=== PATIENT | male | born 1945 | race Caucasian/White ===

== ENCOUNTER 2024-03-08 09:52 | Emergency (ER) | payer MEDICARE, BC, SELFPAY ==
[2024-03-08 10:02] VITALS: BMI 26.6
[2024-03-08 10:05] VITALS: BP 170/94
--- NOTE | 2024-03-08 10:22 | ED.MUSCINJ ---
HPI-Injury
General
Chief Complaint: Fall
Source: patient
Exam Limitations: none
Time Seen by Provider: 03/08/24 10:05
Travel History
Have you had any contact with someone who has COVID-19?: No
Do you have any symptoms of coronavirus? Fever > 100 degrees, chills, cough, shortness of breath, sore throat, loss of taste or smell, muscle aches, or headache?: No
History of Present Illness-Injury
Initial Injury comments:
78-year-old male presents as a rapid response called from the parking lot. He was dropping his daughter off for colonoscopy and he parked in his car was rushing to get back in before they took her back but tripped. He fell forward hitting his face
on the sidewalk but also complains of left wrist and elbow pain. No anticoagulants. No loss of conscious. No neck or back pain. His nose bled for several minutes then stop.
Phy Exam
Physical Exam
Physical Exam:
General: Well-appearing male no acute respiratory distress
HEENT: Normocephalic contusion noted to left maxillary area with dried blood around bilateral nasal orifices. Nasal cavities are patent no obvious evidence of septal hematoma pupils are equal round measuring 2 mm nonreactive to light TMs normal
Heart: Regular rate and rhythm no murmurs
Lungs: Clear no wheezing or rales
Musculoskeletal exam: Spine is nontender. Left wrist is slightly swollen and tender over the radiocarpal joint. Left elbow is also slightly tender over the radial aspect of the elbow.
Neurologic: Alert and oriented no facial asymmetry or slurred speech
Injury Course
Orders/Labs/Results
Orders:
Orders
03/08/24 10:19
CT Facial Bones W/o Iv Contras Urgent
Comment:
Reason For Exam: fall, left facial pain
CT Head W/o Iv Contrast Urgent
Comment:
Reason For Exam: fall
CR Elbow - Left Min 3 Views Urgent
Comment:
Reason For Exam: fall
CR Wrist - Left Min 3 Views Urgent
Comment:
Reason For Exam: fall
03/08/24 12:05
Sling Left-Treatment ONCE
MDM/Problems Addressed
Differential Diagnosis Includes:
Mechanical fall with facial injury and left wrist and elbow pain. CT head and face pending to evaluate for fracture or intracranial hemorrhage. X-ray left wrist pending to evaluate for patient.
*Critical Care Note
Total Time (30-74mins, 75-104mins- exclusive of procedures): Not Applicable
Update Note
Update Note:
X-rays have been personally visualized. There is a nondisplaced radial neck fracture of the left elbow. Left wrist is negative. CT of the head and face demonstrates nondisplaced nasal bone fracture. Recommended ibuprofen or Tylenol. Sling was
applied to his left arm. Stable for discharge with orthopedics and ENT follow-up
ED Attending Note
-
Portions of this chart may have been created with voice recognition software.� Occasional wrong word or��sound alike� substitutions may have occurred due to the inherent limitations of voice recognition software.
Discharge Plan
Departure
Patient Disposition: Home (Routine Discharge)
Date of Disposition: 03/08/24
Time of Disposition: 12:08
Patient with high blood pressure during this ER visit?: No
Discharge Problem:
Fracture of radial neck, Fracture of nasal bone
Instructions: Nose fracture, Preventing falls in adults
Referrals:
Mele Morris MD [Active] -
Mary Ellen Castillo MD [Active] -
Charlie Madrid DO [Family Provider] -
Activity Restrictions/Additional Instructions:
Use Tylenol or ibuprofen for pain. Use sling for support for the left arm. Please follow-up with orthopedics and ear nose and throat.
Interventions
Interventions:
*Risk Screen - Suicide Last Done: 03/08/24 10:05
*General Assessment Last Done: 03/08/24 09:59
*Neglect/Abuse Screening Last Done: 03/08/24 10:05
ED- Fall Risk Assessment Last Done: 03/08/24 10:06
*ED COVID-19 Vaccine History Last Done: 03/08/24 09:59
ED-Musculoskeletal Assessment Last Done: 03/08/24 10:03
ED- Neurological Assessment Last Done: 03/08/24 10:03
ED-Skin Assessment Last Done: 03/08/24 10:05
Discharge Date and Time
Print Language: CANADIAN
== END 2024-03-08 12:51 | disposition home or self-care (01) ==
LOC: EMR 09:52
PROVIDERS: EMERGENCY PHYSICIAN Emergency Medicine; FAMILY PHYSICIAN Internal Medicine
DX: S02.2XXA Fracture of nasal bones, initial encounter for closed fracture (principal); S52.135A Nondisplaced fracture of neck of left radius, initial encounter for closed fracture; W19.XXXA Unspecified fall, initial encounter
CPT/HCPCS: 99284; 70450; 70486; 73080; 73110

== ENCOUNTER → 2024-09-04 11:07 | Outpatient (REF) | payer MEDICARE, BC, SELFPAY | LOC: RAD 11:07 | PROVIDERS: ATTENDING PHYSICIAN Nurse Practitioner Primary Care; REFERRING PHYSICIAN Internal Medicine Critical Care Medicine | DX: R06.2 Wheezing (principal); R05.2 Subacute cough; R06.09 Other forms of dyspnea; Z87.891 Personal history of nicotine dependence | CPT/HCPCS: 71260; Q9967 ==

== ENCOUNTER → 2024-09-09 10:58 | Outpatient (REF) | payer MEDICARE, BC, SELFPAY | LOC: RCS 10:58 | PROVIDERS: ATTENDING PHYSICIAN Internal Medicine Critical Care Medicine; FAMILY PHYSICIAN Internal Medicine | DX: J44.9 Chronic obstructive pulmonary disease, unspecified (principal) | CPT/HCPCS: 93005 ==

== ENCOUNTER → 2025-07-22 10:58 | Outpatient (REF) | payer MEDICARE, BC, SELFPAY | LOC: RAD 10:58 | PROVIDERS: ATTENDING PHYSICIAN Nurse Practitioner Family | DX: R05.1 Acute cough (principal) | CPT/HCPCS: 71046 ==

== ENCOUNTER → 2025-07-25 10:10 | Outpatient (REF) | payer MEDICARE, BC, SELFPAY | LOC: HWRCS 10:10 | PROVIDERS: ATTENDING PHYSICIAN Nurse Practitioner Family; FAMILY PHYSICIAN Internal Medicine | DX: R79.89 Other specified abnormal findings of blood chemistry (principal); R06.02 Shortness of breath | CPT/HCPCS: 93005; 93306 ==

== ENCOUNTER → 2025-08-18 16:05 | Outpatient (REF) | payer MEDICARE, BC, SELFPAY | LOC: RAD 16:05 | PROVIDERS: ATTENDING PHYSICIAN Nurse Practitioner Adult Health; FAMILY PHYSICIAN Internal Medicine | DX: J44.1 Chronic obstructive pulmonary disease with (acute) exacerbation (principal) | CPT/HCPCS: 71046 ==

== ENCOUNTER 2025-10-22 13:35 | Inpatient (IN) | payer MEDICARE, BC, SELFPAY ==
[2025-10-22] VITALS (19 sets, daily range): BP systolic 118–197; BP diastolic 65–105; PULSE 2–109; BMI 24.6; BMI 25.4
--- NOTE | 2025-10-22 08:49 | ED.GENMED ---
History of Present Illness
<Chika Swenson MD, Resident - Last Filed: 10/22/25 10:49>
General
Chief Complaint: Breathing Problem
Source: patient and family
Exam Limitations: none
Time Seen by Provider: 10/22/25 08:26
Nursing documentation reviewed up to this point in time: agreed with
History of Present Illness
History of Present Illness:
80yo M with a hx of COPD, gastric & prostate ca (remission), GERD, JAROCHO of unknown etiology who presents with subacute dyspnea.
Pt was in his usual state of health until ~2 days ago when he began having worsening dyspnea on exertion and productive cough. Yesterday, dyspnea got progressively worse and he had a hard time sleeping through the night; came to the ED. Was using
rescue albuterol inhaler at least every 4 hrs. Did not take his trelegy yet this am (typically takes every am). Denies any f/c, denies any known sick contacts. However, notes that they spent the last few days at an assisted living/SNF facility which
often has URIs going around. Endorses orthopnea and JAROCHO, although this is chronic. He takes lasix 20mg daily for JAROCHO (no formal dx of CHF).
Last had an exacerbation a few weeks ago, thought to be triggered by his GERD. Follows w Dr. Fox (leather heel breaster) who rx azithromycin & prednisone at that time. Had an rx for home prednisone in case of exacerbation, which he had not yet picked
up. He returned to baseline breathing, was able to ambulate/exercise without issue (no O2 use at home) for the last couple of weeks.
Past History
<Chika Swenson MD, Resident - Last Filed: 10/22/25 10:49>
Past History
ED Past Medical History: Asthma, Cancer (prostate, gastric), COPD, GERD and Other (JAROCHO chronic )
Social History
Personal:
Review of Systems
<Chika Swenson MD, Resident - Last Filed: 10/22/25 10:49>
Review of Systems
All Other Systems: ROS reviewed and negative except as documented in HPI and ROS
Constitutional: Reports no symptoms
EENT: Reports no symptoms
Respiratory: Reports cough and trouble breathing
Cardiac: Reports no symptoms
ABD/GI: Reports no symptoms
: Reports no symptoms
Musculoskeletal: Reports edema
Skin: Reports no symptoms
Neurological: Reports no symptoms
Psychiatric: Reports no symptoms
Phy Exam
<Chika Swenson MD, Resident - Last Filed: 10/22/25 10:49>
General Physical Exam
General Presentation: moderate distress
General age: appears stated age
General Skin: warm and dry
General Habitus: normal
General Mental: alert
Cardiovascular Exam
Cardiovascular Exam: regular rate/rhythm and other (1+ pitting edema bilateral LEs to mid-[place])
Heart Sounds: normal
Pulmonary Exam
Pulmonary Exam: accessory muscle use, generalized wheezing and other (retractions, out of breath with finishing sentences )
Gastrointestinal Exam
Gastrointestinal Exam: soft and non distended
Neurological Exam
Neurological Exam: alert
Musculoskeletal Exam
Musculoskeletal Exam: edema (1+ pitting bilat LE to mid [place])
Skin Exam
Skin Exam: normal color and warm/dry
Psychiatric Exam
Psychiatric Exam: normal mood/affect
Scores
<Chika Swenson MD, Resident - Last Filed: 10/22/25 10:49>
Heart Failure Risk
Heart Failure Risk Score: Not Applicable
Sepsis
<Chika Swenson MD, Resident - Last Filed: 10/22/25 10:49>
Sepsis Screening
Sepsis Assessment: Sepsis Ruled Out
Sepsis Screen
Sepsis Screen: Sepsis Ruled Out
Date: 10/22/25
Time: 10:49
Course
<Chika Swenson MD, Resident - Last Filed: 10/22/25 10:49>
Orders/Labs/Results
Orders:
Orders
10/22/25 08:34
Ipratropium/Albuterol Sulfate [Duoneb] 3 ml INH R NOW STA
MethylPREDNISolone PF [Solu-Medrol Pf] 125 mg IV NOW STA
Oxygen Mask - Non-rebreather [RESP] Stat
10/22/25 08:59
Bipap [RESP] Urgent
Patient to use own unit?: No
Inspiratory Pressure (cm H2O): 12
Expiratory Pressure (cm H2O): 5
10/22/25 09:04
COVID-19 Antigen Urgent
Source: Nasal Swab
Complete Blood Count/With Diff Urgent
Comprehensive Metabolic Panel Urgent
NT-proBNP Urgent
Venous Blood Gas Urgent
%Oxygen/Room Air: 21
Influenza A+B Rapid Molecular Urgent
SY Source: Nasal Swab
Specimen Description:
10/22/25 09:15
CR Chest Portable - 1 View Urgent
Comment:
Reason For Exam: copd
Reason Study Needs to be Portable: Unable to Transport
10/22/25 11:00
Azithromycin 500 mg/250 ml [Zithromax Infusion] 500 mg in 250 ml IV Q24H
10/22/25 12:00
CefTRIAXone [Rocephin] 1,000 mg IV Q24H
Abnormal Lab Results
10/22/25
09:04
MCHC 32.2 L g/dL
(33.0-37.0)
Absolute Neuts (auto) 8.2 H 10^3/uL
(1.4-6.5)
Absolute Lymphs (auto) 1.0 L 10^3/uL
(1.2-3.4)
Absolute Monos (auto) 0.7 H 10^3/uL
(0.1-0.6)
Neutrophils % 78.7 H %
(42.2-75.2)
Lymphocytes % 9.7 L %
(20.5-51.1)
VBG pO2 72 H mmHg
(30-50)
BUN 25 H mg/dl
(9-20)
Glucose 155 H mg/dl
(70-99)
10/22/25 09:04
10/22/25 09:04
Vital Signs
Initial and Last Documented VS:
Initial Vital Signs
Temp Pulse Resp BP Pulse Ox
98.4 F 114 28 197/95 89
10/22/25 08:25 10/22/25 08:25 10/22/25 08:25 10/22/25 08:25 10/22/25 08:25
Last Documented Vital Signs
Temp Pulse Resp BP Pulse Ox
98.4 F 112 20 136/83 98
10/22/25 08:25 10/22/25 10:43 10/22/25 10:43 10/22/25 10:00 10/22/25 10:43
<Tati Medellin, DO - Last Filed: 10/22/25 10:43>
Orders/Labs/Results
Orders:
Orders
10/22/25 08:34
Ipratropium/Albuterol Sulfate [Duoneb] 3 ml INH R NOW STA
MethylPREDNISolone PF [Solu-Medrol Pf] 125 mg IV NOW STA
Oxygen Mask - Non-rebreather [RESP] Stat
10/22/25 08:59
Bipap [RESP] Urgent
Patient to use own unit?: No
Inspiratory Pressure (cm H2O): 12
Expiratory Pressure (cm H2O): 5
10/22/25 09:04
COVID-19 Antigen Urgent
Source: Nasal Swab
Complete Blood Count/With Diff Urgent
Comprehensive Metabolic Panel Urgent
NT-proBNP Urgent
Venous Blood Gas Urgent
%Oxygen/Room Air: 21
Influenza A+B Rapid Molecular Urgent
SY Source: Nasal Swab
Specimen Description:
10/22/25 09:15
CR Chest Portable - 1 View Urgent
Comment:
Reason For Exam: copd
Reason Study Needs to be Portable: Unable to Transport
10/22/25 11:00
Azithromycin 500 mg/250 ml [Zithromax Infusion] 500 mg in 250 ml IV Q24H
10/22/25 12:00
CefTRIAXone [Rocephin] 1,000 mg IV Q24H
Abnormal Lab Results
10/22/25
09:04
MCHC 32.2 L g/dL
(33.0-37.0)
Absolute Neuts (auto) 8.2 H 10^3/uL
(1.4-6.5)
Absolute Lymphs (auto) 1.0 L 10^3/uL
(1.2-3.4)
Absolute Monos (auto) 0.7 H 10^3/uL
(0.1-0.6)
Neutrophils % 78.7 H %
(42.2-75.2)
Lymphocytes % 9.7 L %
(20.5-51.1)
VBG pO2 72 H mmHg
(30-50)
BUN 25 H mg/dl
(9-20)
Glucose 155 H mg/dl
(70-99)
10/22/25 09:04
10/22/25 09:04
Vital Signs
Initial and Last Documented VS:
Initial Vital Signs
Temp Pulse Resp BP Pulse Ox
98.4 F 114 28 197/95 89
10/22/25 08:25 10/22/25 08:25 10/22/25 08:25 10/22/25 08:25 10/22/25 08:25
Last Documented Vital Signs
Temp Pulse Resp BP Pulse Ox
98.4 F 112 20 136/83 98
10/22/25 08:25 10/22/25 10:43 10/22/25 10:43 10/22/25 10:00 10/22/25 10:43
<Chika Swenson MD, Resident - Last Filed: 10/22/25 10:49>
MDM/Problems Addressed
Differential Diagnosis Includes:
COPD exacerbation; triggered by respiratory virus vs. acute on chronic undiagnosed HFpEF vs. GERD
MDM/Problems Addressed:
- 125mg solumedrol IV
- Duonebs
- BiPAP (given retractions, accessory muscle use, difficulty finishing sentences on nonrebreather; although satting ~94% on 3L NC)
- CXR
- CBC, CMP
- COVID, flu antigen
- Pro-BNP
- VBG
- Likely admission
<Chika Swenson MD, Resident - Last Filed: 10/22/25 10:49>
*Pulse Oximetry
SaO2: 89
Oxygen Mode of Delivery: Room air
Patient hypoxic: yes
*Critical Care Note
Total Time (30-74mins, 75-104mins- exclusive of procedures): Not Applicable
<Chika Swenson MD, Resident - Last Filed: 10/22/25 10:49>
Update Note
Update Note:
9:15am
VBG without pH imbalance or hypercapnia; pO2 72 (elevated)
10:30am
CXR: Findings suggestive of COPD. No focal airspace disease. There is apparent mild interstitial opacification which can be seen with pneumonitis or atypical infection.
Patient feeling somewhat better with bipap & s/p 1 duoneb trt & steroids. Persistent retractions noted. 98% O2 saturation. Will give second duoneb treatment. Considered removing bipap to avoid over-oxygenation but weighed against avoiding tiring out
muscles of respiration. Will leave for now. Will start 500mg IV azithro & 1mg ceftriaxone for CAP and atypical PNA. Discussed admission with pt, will plan for admission.
ED Attending Note
<Chika Swenson MD, Resident - Last Filed: 10/22/25 10:49>
-
Portions of this chart may have been created with voice recognition software.� Occasional wrong word or��sound alike� substitutions may have occurred due to the inherent limitations of voice recognition software.
<Tati Medellin DO - Last Filed: 10/22/25 10:43>
ED Attending Note
Patient seen and examined by attending physician: Yes
I performed the substantive portion of visit, reviewed & personally made and approve the management plan that is documented in note by myself or BARRERA.: Yes
I performed a history and physical exam of patient and discussed management with resident, I reviewed resident's note and agree with documented findings and plan of care.: Yes
ED Attending Note:
80-year-old male with history of COPD and GERD presenting to the emergency department for 2 days of worsening dyspnea. Patient also notes productive cough and orthopnea. Denies any history of CHF. He reports that he is maintained on Lasix for
chronic lower extremity swelling. Denies fever or known sick contacts. He has been using his albuterol inhaler and rescue inhalers every 4 hours without significant relief. Denies fever. Vital signs are significant for hypertension which has
since improved without intervention.
On exam, patient in moderate respiratory distress with a increased work of breathing, retractions. On lung exam, prolonged expiratory wheezing. No significant signs of volume overload. No crackles. No lower extremity swelling. Suspect acute
COPD exacerbation. Lower suspicion for CHF. Work of breathing, will start patient on DuoNebs, Solu-Medrol. Will also start patient on BiPAP. Will obtain chest x-ray imaging and viral swabs and continue to closely monitor.
10:40 -Chest x-ray without significant finding, possible small opacification indicating atypical pneumonia. Patient does note new productive cough. So given COPD exacerbation with new productive cough, will start antibiotics for community-acquired
pneumonia. Patient remains tight and wheezy on exam. Will admit additional admission
Discharge Plan
Departure
Patient Disposition: Admit
Date of Disposition: 10/22/25
Time of Disposition: 10:48
Admit to: Med/Surg
Admit to doctor: Liliana
Presentation/result/management discussed w/ accepting MD/DO: Hospitalist
Patient with high blood pressure during this ER visit?: Yes
Condition: Fair
Covid-19: Negative COVID-19
Discharge Problem:
Acute exacerbation of chronic obstructive pulmonary disease
Prescriptions:
No Action
acetaminophen [Tylenol] 325 mg Tablet
650 mg PO Q6HPRN PRN (Reason: MILD PAIN)
albuterol sulfate 2.5 mg /3 mL (0.083 %) Solution For Nebulization
2.5 mg INHALATION R Q4HPRN PRN (Reason: SOB)
Theragen Tablet
1 tab PO DAILY
famotidine [Pepcid] 20 mg Tablet
20 mg PO QPM
ascorbic acid (vitamin C) [Vitamin C] 500 mg Tablet
500 mg PO DAILY
Citrucel 500 mg Tablet
1,200 mg PO DAILY
calcium carbonate [Tums] 200 mg calcium (500 mg) Tablet,Chewable
200 mg PO BIDPRN PRN (Reason: GERD)
vitamin B complex [B Complete] Tablet
1 tab PO DAILY
furosemide [Lasix] 20 mg Tablet
20 mg PO DAILY
mirabegron [Myrbetriq] 25 mg Tablet Extended Release 24 Hr
25 mg PO QPM
Trelegy Ellipta 100-62.5-25 mcg Blister With Device
1 inh INHALATION R DAILY
Voquezna 10 mg Tablet
10 mg PO DAILY
Referrals:
Charlie Madrid DO [Family Provider, Internal Medicine]
Interventions
Interventions:
*Risk Screen - Suicide Last Done: 10/22/25 09:24
*General Assessment Last Done: 10/22/25 09:21
*Neglect/Abuse Screening Last Done: 10/22/25 09:24
*ED COVID-19 Vaccine History Last Done: 10/22/25 09:20
*ED Influenza Vaccine History Last Done: 10/22/25 09:20
ED- Cardiac Assessment Last Done: 10/22/25 09:21
ED- Pulmonary Assessment Last Done: 10/22/25 09:21
Discharge Date and Time
Print Language: INDONESIAN
[2025-10-22] MEDS: DUONEB 3 ML INH ×4 (08:54→19:08)
[2025-10-22] MEDS: SOLU-MEDROL PF 125 MG IV (09:10)
[2025-10-22 09:12] LABS: Venous Blood Gas B.E. 0.2 mmol/L (-4 to +4); Venous Blood Gas O2 Sat % 96.7 %
[2025-10-22 09:13] LABS: Hematocrit 44.4 % (39.0-52.0); Hemoglobin 14.3 g/dL (13.0-18.0); Mean Corp Hgb Conc. 32.2 g/dL (33.0-37.0); Mean Corpuscular Volume 90.4 fL (80.0-94.0); Nucleated Red Blood Cells % 0 % (-); Platelet Count 181 10^3/uL (130-400); Red Cell Dist. Width 13.4 % (11.5-14.5)
[2025-10-22 09:36] LABS: ALT (SGPT) 19 U/L (0-50); AST (SGOT) 22 U/L (17-59); Albumin 4.6 g/dl (3.5-5.0); Alkaline Phosphatase 91 U/L (38-126); Blood Urea Nitrogen 25 mg/dl (9-20); Calcium 9.3 mg/dl (8.4-10.2); Carbon Dioxide 25 mmol/L (22-30); Chloride 103 mmol/L (98-107); Estimated Creatinine Clearance 66 ml/min; Glucose 155 mg/dl (70-99); Potassium 4.4 mmol/L (3.5-5.1); Sodium 135 mmol/L (135-145); Total Protein 7.8 g/dl (6.3-8.2); eGFR > 60.00
[2025-10-22 10:41] LABS: COVID-19 Antigen Negative (Negative)
[2025-10-22] MEDS: ROCEPHIN 1000 MG IV (11:28)
[2025-10-22] MEDS: ZITHROMAX INFUSION 250 IV (11:39)
--- NOTE | 2025-10-22 12:59 | HPS.HSE ---
Addendum entered and electronically signed by Dean Olvera MD 10/22/25 14:44:
I personally performed a history and physical exam of the patient and discussed management with the resident. I reviewed the resident's note and agree with the documented findings and plan of care HPI/CC.
80-year-old male past medical history of COPD, history of tobacco abuse, prostate cancer status post resection and radiation was presenting from home with complaints of severe shortness of breath. Patient noticed dyspnea on exertion with mild
activity. Also reports of runny nose. States of chronic cough with increased sputum. States of significant improvement in lower extremity edema. Has significant difficulty falling asleep due to shortness of breath. In the ER patient was found
to be in severe COPD exacerbation and was placed on BiPAP. Also received multiple nebulizing treatment.
General: In acute respiratory distress, seen on high flow nasal cannula,
HEENT: NormoCephalic and Anicteric
Respiratory: Accessory Resp Muscle Use and unable to speak complete sentences, decreased aeration bilateral
Cardiac: S1/S2 and Regular Rhythm
GI: Soft, Non Tender and Non Distended
Musculoskeletal: Trace, compression socks noted
Skin: Warm and Dry
Neuro: AO x 3
Hematologic/Lymphatic: No Lymphadenopathy
Psych: Calm
Acute hypoxic respiratory failure secondary to acute COPD exacerbation
Former tobacco user
Maintain O2 saturation greater than 88%
Currently on HFNC 50%.
Status post 125 mg of Solu-Medrol in the ER
Start Decadron in the morning
Sputum sample. Influenza & COVID-negative
Continue with IV azithromycin.
Bronchodilators standing and as needed
If no improvement can consider CT of the chest
Due to acuity of the patient and respiratory distress will monitor patient in the medical ICU
Speech evaluation in morning
Follows with Dr. Fox as outpatient
proBNP not significantly elevated.
Jd Edwards Consultant consultation
GERD
Continue with anti-acid medication
Chronic lower extremity edema
Continue with Lasix
DVT prophylaxis
Discussed with family member at bedside in detail
Total Critical Care Time 40_ minutes. I was immediately available to the patient and staff. I personally examined, reviewed labs, diagnostic images/reports, interpretations, treatment plans, discussed patient care with other providers and family
or caregivers (if patient is unable to make decisions), entered orders as appropriate and documented the medical record.
Original Note:
Family Physician
-
Family Physician: Charlie Madrid
Chief Complaint
-
Shortness of breath
History of Present Illness
80-year-old male with history of COPD, GERD, gastric cancer, prostate cancer, presents with acute shortness of breath. He is on Trelegy, rescue inhaler, nebulizer for COPD. He uses Trelegy and nebulizer every day, and rescue inhaler as needed.
He notes that for the past 2 days he has been short of breath even walking for 3 to 4 feet. He reports of having runny nose during the weekend. He has chronic cough but producing increased amount of sputum whitish-yellowish color. He quit
smoking around 15 years ago. He denies fever, chills, chest pain, palpitation. In ED patient was tachypneic, tachycardic, using accessory muscles. He was on 6 L of oxygen and was then started to BiPAP. Currently his oxygen saturation is 90% on
BiPAP, heart rate 90s, RR 26, mild dyspneic while speaking 2-3 full sentences. S/p DuoNeb x 2, IV Solu-Medrol, azithromycin and ceftriaxone.
Medical History
Past Medical History
Past Medical History: Reports GERD and Other (COPD, GERD, gastric cancer, prostate cancer s/p resection and radiation)
Past Surgical History: Reports Other (Prostatectomy)
Social History
Tobacco: Former Smoker
Alcohol: None
Drug: None
Living: With Family
Employment: Retired
Family History
Family History: Not pertinent
Allergies / Home Medications
Allergies reflects when Allergies were last updated in [facility].
Home Medications with original date entered in [facility]
Allergy/Medication List:
Allergies
Allergy/AdvReac Type Severity Reaction Status Date / Time
Antihistamines - Ethanolamine Allergy Unknown Unknown Verified 09/11/23 07:43
Home Medications
acetaminophen 325 mg tablet (Tylenol) 650 mg PO Q6HPRN PRN MILD PAIN 10/22/25
albuterol sulfate 2.5 mg/3 mL (0.083 %) solution for nebulization 2.5 mg inhalation R Q4HPRN PRN SOB 10/22/25
ascorbic acid (vitamin C) 500 mg tablet (Vitamin C) 500 mg PO DAILY 10/22/25
calcium carbonate (Tums) 200 mg PO BIDPRN PRN GERD 10/22/25
famotidine 20 mg tablet (Pepcid) 20 mg PO QPM 10/22/25
fluticasone fur. 100 mcg-umeclid 62.5 mcg-vilant 25 mcg inhalat.powder (Trelegy Ellipta) 1 inh inhalation R DAILY 10/22/25
furosemide 20 mg tablet (Lasix) 20 mg PO DAILY 10/22/25
methylcellulose (laxative) 500 mg tablet (Citrucel) 1,200 mg PO DAILY 10/22/25
mirabegron 25 mg tablet,extended release 24 hr (Myrbetriq) 25 mg PO QPM 10/22/25
therapeutic multivitamin 1 tab PO DAILY 10/22/25
vitamin B complex 1 tab PO DAILY 10/22/25
vonoprazan 10 mg tablet (Voquezna) 10 mg PO DAILY 10/22/25
Review of Systems
-
History Source: Patient and Family
A 12 point ROS was completed and negative except as noted: Yes
Physical Exam
Vital Signs
Vital Signs
Temp Pulse Resp BP Pulse Ox
98.3 F 102 26 161/89 98
10/22/25 11:47 10/22/25 11:45 10/22/25 11:45 10/22/25 11:00 10/22/25 11:48
Physical Exam
General: Respiratory Distress (Moderate) and Other (On BiPAP, using accessory muscles, unable to speak in full sentences)
HEENT: NormoCephalic and Anicteric
Respiratory: Accessory Resp Muscle Use and Decreased Breath Sounds (Very mild air movement bilaterally)
Cardiac: S1/S2 and Regular Rhythm
GI: Soft, Non Tender and Non Distended
Musculoskeletal: No Edema
Skin: Warm and Dry
Neuro: AO x 3
Hematologic/Lymphatic: No Lymphadenopathy
Psych: Calm
Laboratory Results
-
10/22/25 09:04
10/22/25 09:04
Laboratory Results
Total Bilirubin 0.6 mg/dl (0.2-1.3) 10/22/25 09:04
AST 22 U/L (17-59) 10/22/25 09:04
ALT 19 U/L (0-50) 10/22/25 09:04
Alkaline Phosphatase 91 U/L (38-126) 10/22/25 09:04
Data Reviewed
-
Diagnostic Radiology: Report Reviewed by me and Discussed with Physician
Lab Data: Labs Reviewed by me and Discussed with Physician
Impression/Plan
-
IMPRESSION:
Severe COPD exacerbation
History of GERD
History of hypertension
History of prostate cancer s/p resection and radiation
History of gastric cancer in 2007
PLAN:
Severe COPD exacerbation
History of COPD on Trelegy, nebulizer and rescue inhaler
Has not taken Trelegy this morning
On exam use of accessory muscles, tachypneic and tachycardic, very low air movement, requiring BiPAP
Admit to ICU
VBG- PH 7.37, CO2 45, bicarb 26
Check ABG
DuoNeb 4 times daily and as needed
Continue home dose Trelegy
Budesonide twice daily scheduled
Continue IV azithromycin and ceftriaxone
Continue BiPAP
Speech evaluation-- reports of regurg/reflux due to severe GERD, check speech for aspiration risk
Consult cryptanalyst
History of GERD
Continue PPI
History of hypertension
Continue Lasix 20 mg
Monitor blood pressure
History of prostate cancer s/p resection and radiation
History of gastric cancer in 2007
Full code
regular diet
Lovenox
--- NOTE | 2025-10-22 15:00 | PTCARENOTE ---
Received patient from ED, A&Ox4, denied pain throughout, on HFNC 40L 50%, improved tachypneic and abdominal breathing, able to talk in full sentences, frequent coughs, expiratory wheezing, ST w/ 1st AVB w/ PACs in 100s, BP WNL, Abdomen soft and
round, Hypoactive bowel sounds, continent with urinal, skin intact.
--- NOTE | 2025-10-22 15:07 | CON.INTV ---
Consultation
Consultation Request
Date/Time Consultation Requested: 10/22/25
Date/Time Consultation Performed: 10/22/25
Performing Provider: Eber
Reason for Consultation: ICU
Medical History
-
History of Present Illness:
Patient is an 80-year-old male with previous history of COPD, former heavy smoker, presenting to ER for persistent shortness of breath. He was seen by our office on 09/17/2025 for COPD exacerbation treated with prednisone and azithromycin.
Previously, there was treatment of COPD exacerbation in July requiring outpatient dose of prednisone. He has had rapid decline of his pulmonary function testing from moderate to severe obstruction in the past year. Chest x-ray demonstrating
no acute findings but significant hyperinflation. On arrival, notably hypoxemic, placed on nasal cannula. Admitted for acute exacerbation of COPD.
Past Medical History
Past Medical History: Other (see list below)
Social History
Tobacco: Former Smoker
Alcohol: None
Drug: None
Allergies / Home Medications
Allergies
Allergy/AdvReac Type Severity Reaction Status Date / Time
Antihistamines - Ethanolamine Allergy Unknown Unknown Verified 09/11/23 07:43
Home Medications
�Medication �Instructions �Recorded �Confirmed �Last Taken �Type
acetaminophen 325 mg tablet 650 mg PO Q6HPRN PRN MILD PAIN 10/22/25 10/22/25 Unknown History
(Tylenol)
albuterol sulfate 2.5 mg/3 mL 2.5 mg inhalation R Q4HPRN PRN SOB 10/22/25 10/22/25 10/22/25 History
(0.083 %) solution for nebulization
ascorbic acid (vitamin C) 500 mg 500 mg PO DAILY Supplement 10/22/25 10/22/25 10/22/25 History
tablet (Vitamin C)
calcium carbonate (Tums) 200 mg PO BIDPRN PRN GERD 10/22/25 10/22/25 Unknown History
famotidine 20 mg tablet (Pepcid) 20 mg PO QPM Gastrointestinal Issue 10/22/25 10/22/25 10/21/25 History
fluticasone fur. 100 mcg-umeclid 1 inh inhalation R DAILY 10/22/25 10/22/25 10/22/25 History
62.5 mcg-vilant 25 mcg Lung/Breathing Issues
inhalat.powder (Trelegy Ellipta)
furosemide 20 mg tablet (Lasix) 20 mg PO DAILY Fluid 10/22/25 10/22/25 10/22/25 History
Retention/Swelling
methylcellulose (laxative) 500 mg 1,200 mg PO DAILY Constipation 10/22/25 10/22/25 10/22/25 History
tablet (Citrucel)
mirabegron 25 mg tablet,extended 25 mg PO QPM Urinary Issue 10/22/25 10/22/25 10/21/25 History
release 24 hr (Myrbetriq)
therapeutic multivitamin 1 tab PO DAILY Supplement 10/22/25 10/22/25 10/22/25 History
vitamin B complex 1 tab PO DAILY Supplement 10/22/25 10/22/25 10/22/25 History
vonoprazan 10 mg tablet (Voquezna) 10 mg PO DAILY Gastrointestinal 10/22/25 10/22/25 10/22/25 History
Issue
Review of Systems
-
History Source: Patient
All other systems: Negative unless noted
Vitals / Labs / Diagnostic Testing
Vital Signs
Temp Pulse Resp BP Pulse Ox
98.3 F 101 21 155/98 97
10/22/25 11:47 10/22/25 14:15 10/22/25 14:15 10/22/25 14:00 10/22/25 15:01
Lab Data
10/22/25 09:04
10/22/25 09:04
Microbiology
10/22/25 09:04 Nasal Swab Influenza Types A & B (JANINA) - Final
Negative for Influenza A & B, NAAT
Negative results must be combined with clinical observations
and patient history.
Nucleic Acid Amplification test (NAAT)performed on the
[employer] platform.
Diagnostic Testing:
Physical Exam
-
HEENT: Normocephalic, Anicteric and Moist Mucous Membranes
Cardiovascular: S1/S2 and Regular Rhythm
Respiratory: Clear (very diminished BS), Non-Labored Respirations and Other (breathless with conversation)
GI: Soft, Non Distended and Non Tender
Neurology: Awake, Alert, Oriented and No Motor Deficits
Skin: Warm, Dry and Good Color
General: Comfortable and Other (NAD)
Assessment
-
Patient is an 80-year-old male with previous history of COPD, former heavy smoker, presenting to ER for persistent shortness of breath. He was seen by our office on 09/17/2025 for COPD exacerbation treated with prednisone and azithromycin.
Previously, there was treatment of COPD exacerbation in July requiring outpatient dose of prednisone. He has had rapid decline of his pulmonary function testing from moderate to severe obstruction in the past year. Chest x-ray demonstrating
no acute findings but significant hyperinflation. On arrival, notably hypoxemic, placed on nasal cannula. Admitted for acute exacerbation of COPD.
AECOPD, with recent frequent exacerbations in the past 3 months
Progressive SOB
Conditions present prior to admission
COPD-severe, follows with [facility]
Former smoker, age 18-65 3/4 PPD on avg
Hypertension
Hyperlipidemia
GERD
History of gastric cancer
History of prostate cancer
Plan
No current signs of metabolic encephalopathy or MS changes/following commands
Denies pain at this time.
Pain/sedation: PRN
RASS goals: 0
Hemodynamically stable, not requiring pressors.
Cardiac history reviewed--HTN
Prior ECHO reviewed indicating stable function
Resume home meds
Monitor on telemetry
Oxygen needs: stable on HFNC at 40%, can transition to NC now
Prior history of lung disease: severe COPD, has had 2 flares in past 3 months requiring PO prednisone
Agree with IV steroids, this is likely AECOPD
Not likely infection
Supplemental O2 as indicated to maintain sats > 89%
CXR/CT reviewed indicating severe hyperinflation, this is confirmed on TLC on prior PFTs
We discussed severe COPD expectations, he will likely need to stay on low dose prednisone as OP ~10mg until seen by our office again
COPD education
Advance diet
Aspiration precautions, HOB > 30 degrees
Speech therapy eval can be considered if at elevated risk
Creat at baseline, no history of renal disease
Void trials
Follow urine output, critical I/Os
Replete electrolytes as needed
No signs/symptoms suspicious for infectious etiology at this time
Observe off antibiotics for now
Follow fever trend, WBC count
CBC stable, no signs of bleeding or coagulopathy.
DVT prophylaxis as assessed based on risk, including mechanical SCDs
Can transfuse if indicated for Hb <7, plt < 10
No prior h/o diabetes or thyroid disease
Monitor accuchecks PRN/SS coverage if needed
Patient does not require ICU status at this time, can transfer to floors. We will follow.
Diagnostic Data
Chest X-Ray: 10/22/25- Findings suggestive of COPD. No focal airspace disease. There is apparent mild interstitial opacification which can be seen with pneumonitis or atypical infection.
08/18/25- Hyperinflation. No acute cardiopulmonary process appreciated.
CT Scan: CHEST 09/04/24- No adenopathy. Findings consistent with bronchitis. No evidence of pneumonia or suspicious pulmonary mass. Minor localized reticulonodular opacity in the peripheral posterior medial left lower lobe, likely reflecting
clinical bronchiolitis. Partially visualized upper abdominal anatomy suggesting Billroth II postsurgical appearance. There is moderate gastric distention with fluid. Incomplete visualization of the gallbladder, with questionable cholelithiasis.
Echo: 07/25/25- 1. Normal left ventricular size, wall thickness and systolic function. No regional wall motion abnormalities are seen. Ejection fraction is 60-65% by volumetric assessment
2. Right ventricular size and systolic function are within normal limits.
3. Mild mitral valve regurgitation.
4. Trace tricuspid regurgitation.
5. Thickened trileaflet aortic valve with aortic valve sclerosis no stenosis. No regurgitation noted.
6. Compared to a prior transthoracic echocardiogram study from 10/05/2023 Aortic valve sclerosis noted.
PFT's: Spirometry with LV- 08/18/2025-� FVC 1.93, 50� Fev1 1.06, 37� ratio 54 TLC 4.93, 62�--severe obstruction
Spirometry: (05/28/2025): FEV1/FVC postbronchodilator: 1.82 L-65%, FEV1:2.21 L-59%, FVC:82%, Flow-volume curve: Obstructive
Total lung capacity 6.28 L- 81%, residual volume is 4.11 L-138%, RV/TLC 65% Summary: moderate airflow obstruction, evidence of air trapping.�
Pulmonary function testing 08/20/2024: post FEV1 2.07 L-63%, TLC 9.55 L-122%, RV 5.23 L-174%, DLCO 50% of predicted.
Reports and relevant images were personally reviewed.
Critical Care time 65 mins -- The patient is admitted for acute critical illness for the treatment of vital organ failure and/or prevention of further life-threatening conditions. Total care includes time spent in review of history, physical exam,
medications, hemodynamic/ventilator parameters, laboratory data, imaging and discussion with house staff, pharmacy, respiratory therapy, clipper counters, and nursing.
--- NOTE | 2025-10-22 16:00 | PTCARENOTE ---
Reassessed the patient, weaned off from HFNC, now on 4L NC. Pending either FEES or Video swallow study tmr with speech team.
--- NOTE | 2025-10-22 16:20 | PTOTSP ---
Dysphagia Evaluation
Patient has acute on chronic dysphagia risk factors (i.e., severe COPD in acute exacerbation, GERD, gastric cancer). CXR this admission concerning for possible pneumonitis vs atypical infection. No overt s/s of aspiration observed but risk for
silent aspiration may be elevated. Wet vocal quality noted at least 5 minutes after PO intake concerning for possible retrograde flow. Consider instrumental swallow testing to objectively assess swallow function.
Recommend:
1. Regular, Thin
2. Medications as best tolerated
3. Strategies: upright to 90 degrees, small sips/bites, slow rate, breaks for breathing, remain upright for at least 30 minutes after PO intake as a reflux precaution, cough/swallow if wet vocal quality observed
4. Instrumental swallow testing
[2025-10-22 17:10] LABS: INR 1.15; PT 14.5 Sec (11.4-14.6)
[2025-10-22 17:11] LABS: APTT 33.8 Sec (23.4-35.0)
[2025-10-22] MEDS: LOVENOX 40 MG SC (17:17)
[2025-10-22] MEDS: TESSALON PERLES 200 MG PO ×2 (17:17→21:06)
[2025-10-22] MEDS: DECADRON 4 MG IV ×2 (17:17→23:39)
[2025-10-22] MEDS: PULMICORT 0.5 MG INH (19:08)
--- NOTE | 2025-10-22 20:13 | PTCARENOTE ---
Patient aao x3 at start of shift, able to make needs known, affect pleasant. Denies pain overall, but confirms some discomfort with cough. Patient is currently on 4L o2 via n/c, pox 95-97%. Cough is intermittent, moist, non productive. Lung sounds
with expiratory wheezing throughout all lobes. Overall assessment as documented. ST oropeza earlier today, patient remains on aspiration precautions at this time and is able to verbalize precautions. Patient using urinal appropriately. Call macias within
reach. Will continue to monitor patient closely.
[2025-10-22] MEDS: TYLENOL 650 MG PO (21:06)
[2025-10-22] MEDS: PEPCID 20 MG PO (21:06)
[2025-10-22] MEDS: NON-FORMULARY ITEM 25 MG PO (21:07)
[2025-10-23] VITALS (13 sets, daily range): BP systolic 107–163; BP diastolic 46–96; BMI 25.3
--- NOTE | 2025-10-23 02:34 | PTCARENOTE ---
Addendum entered by Lisbeth Vivar RN 10/23/25 02:39:
Hi flow placed on 50L at 35%, not 40%. Patient breathing easier. RN remained at bedside for support and encouragement as patient appeared anxious.
Original Note:
Patient was down to 4L n/c overnight, woke up with air hunger and saying he feels like he cannot breathe. Air hunger noted, patient gasping for air. Pox 94% on 4L, patient currently breathing through mouth. RN instructed patient to focus on
breathing, pox stable. TT sent to Deepak BAILEYNP with update. TT sent to RT requesting visit to bedside to assess. RT placed patient on Hi flow- 50L at 40%, RT reassured patient that vss, and instructed to focus on his breathing to try to catch his
breath. Patient nods head in understanding. Awaiting RADIO PERFORMER response. Will continue to monitor patient closely.
--- NOTE | 2025-10-23 03:17 | PTCARENOTE ---
Deepak COPELAND to bedside. New order noted for PRN Mike nebs. Patient continues with regular RR, no air hunger noted. HOB elevated, pillows behind back and head for comfort. Will continue to monitor closely.
[2025-10-23 03:22] LABS: Hematocrit 39.8 % (39.0-52.0); Hemoglobin 13.2 g/dL (13.0-18.0); Mean Corp Hgb Conc. 33.2 g/dL (33.0-37.0); Mean Corpuscular Volume 90.5 fL (80.0-94.0); Nucleated Red Blood Cells % 0 % (-); Platelet Count 185 10^3/uL (130-400); Red Cell Dist. Width 13.2 % (11.5-14.5)
[2025-10-23 03:48] LABS: Blood Urea Nitrogen 27 mg/dl (9-20); Calcium 9.4 mg/dl (8.4-10.2); Carbon Dioxide 25 mmol/L (22-30); Chloride 105 mmol/L (98-107); Estimated Creatinine Clearance 66 ml/min; Glucose 150 mg/dl (70-99); Potassium 4.6 mmol/L (3.5-5.1); Sodium 137 mmol/L (135-145); eGFR > 60.00
[2025-10-23] MEDS: DECADRON 4 MG IV ×2 (05:43→17:46)
[2025-10-23] MEDS: DUONEB 3 ML INH ×4 (05:50→19:11)
[2025-10-23] MEDS: DUONEB INH ×2 (07:23→07:49)
[2025-10-23] MEDS: PULMICORT 0.5 MG INH ×2 (07:23→19:11)
[2025-10-23] MEDS: LASIX 20 MG PO (08:13)
[2025-10-23] MEDS: B COMPLEX w/VITAMIN C 1 CAPLET PO (08:14)
[2025-10-23] MEDS: VITAMIN C 500 MG PO (08:14)
[2025-10-23] MEDS: THERAGRAN 1 TABLET PO (08:14)
[2025-10-23] MEDS: METAMUCIL, KONSYL PO (08:16)
[2025-10-23] MEDS: NON-FORMULARY ITEM 10 MG PO (08:19)
--- NOTE | 2025-10-23 08:24 | W.PN.INTV ---
Today's Communication / Plan
Recommendations
Continue to wean off oxygen as tolerated
Continue dexamethasone, budesonide, DuoNebs
Continue to monitor off antibiotics for CAP
Start morphine 5 mg p.o. every 6 hours as needed for air hunger
Start azithromycin MWF for COPD prophylaxis
Assessment
-
Assessment: Patient is an 80-year-old male with PMH of severe COPD (follows with Dr. Fox) and GERD undergoing management in the ICU after presenting 10/22 with SOB, cough, and respiratory distress. Patient has had 2 COPD exacerbations over the
last few months, which required outpatient treatment with prednisone and azithromycin. On presentation, patient was afebrile, hypertensive, tachycardic, tachypneic, and hypoxic. In the ED, patient was administered Solu-Medrol, DuoNebs, antibiotics
(ceftriaxone, azithromycin), and BiPAP. Labs reassuring, with no leukocytosis, proBNP 332, and VBG showing normal pH, CO2, and bicarb. CXR showed hyperinflation c/w COPD and mild interstitial opacification. Patient is undergoing management for
acute exacerbation of COPD.
Impression:
#AECOPD
#GERD
#History of gastric cancer s/p partial gastrectomy (2007)
#History of prostate cancer s/p resection (2003)
Plan:
Neuro
A&O x 3 without pain or sedation
Continue to monitor
Cardiovascular
Hemodynamically stable
No signs of heart failure w/ proBNP 332
Echo 07/25/2025: LVEF 60-65%; mild MR; trace TR; aortic valve sclerosis
Continue home Lasix 20 mg p.o. daily
Continue to monitor
Respiratory
Transition from HFNC 40 L 40% to NC 4 L this morning after experiencing air hunger overnight
Continue budesonide, DuoNebs scheduled
Start azithromycin 500 mg p.o. MWF for COPD prophylaxis
Start morphine 5 mg p.o. every 6 hours as needed to limit air hunger, improve respiratory status
Continue dexamethasone 4 mg IV q12h for now, with plan to transition to oral steroids in the coming days
Patient will likely benefit from continued low-dose steroid (prednisone 10 mg p.o.) outpatient until seen again by pulmonology
Continue guaifenesin scheduled, benzonatate as needed for productive cough
Encourage IS, OOB
PFTs 08/18/2025 showed severe obstruction
Discussed importance of pulmonary rehab outpatient with patient
Gastrointestinal
Continue home famotidine HS, vonoprazan daily
Senna, docusate, bisacodyl as needed
Monitor for BM, consider scheduled bowel regimen if no BM in coming days
Genitourinary
Good UOP, with ~70 mL/h overnight
Cr 1.0, stable
Continue to monitor UOP, BMP
Heme
CBC stable, monitor daily
No signs of anemia or bleeding
Infectious disease
Monitoring off ABX for CAP given no leukocytosis, afebrile, CXR without overt signs of PNA
Trend CBC, temperature curve
Endocrine
Sugars well-controlled in the 150s while on steroids, with no hx diabetes
Continue to monitor, add sliding scale as needed
DVT PPx: Lovenox 40 mg
Subjective Dataa
Subjective Data
Date of Service:
Date of Service: October 23, 2025
Subjective:
Patient was seen at the bedside on hospital day #2. Patient states he is feeling okay overall, though he does note that his breathing worsened overnight. Per nursing, patient complained of air hunger around 2 AM, which prompted him to be placed on
HFNC 50 L from nasal cannula. Patient endorses very mild SOB at this time. Mild cough as well, though this is normal for him. Denies chest pain, fever, fatigue, chills, or headache. Last BM was 2 days ago. He typically has a BM every day, but
he notes that he did not eat much yesterday.
Review of Systems
General: Other (Denies fever, fatigue, chills, or pain)
Cardiopulmonary: Dyspnea (Mild), Cough (Chronic), Sputum Production (Occasional), Wheezing and Other (Denies chest pain or LE edema)
GI: Other (Denies abdominal pain, nausea, vomiting, or diarrhea)
Neuro: Other (Denies headache, weakness, or numbness)
Objective Data
Data Reviewed
Vital Signs / I&O / Oxygen:
Vital Signs
Temp Pulse Resp BP Pulse Ox
97.1 F 84 18 139/72 92
10/22/25 23:47 10/23/25 08:13 10/23/25 07:45 10/23/25 08:13 10/23/25 07:45
Intake and Output
10/22/25 10/23/25 10/24/25
06:59 06:59 06:59
Intake Total 240 / 240
Output Total 1375 / 1375
Balance -1135 / -1135
SaO2 92
Nasal Cannula flow liters per 40
minute
Physical Exam
General: Comfortable, T Max (98.4) and Other (No pain or chills)
HEENT: Normocephalic
Cardiovascular: S1-S2, Regular Rhythm and Other (No M/R/G; UE pulses 2+; no peripheral edema)
Respiratory: Wheeze (Diffuse, worse at the bases), Non-Labored Respirations, Other (No accessory muscle use) and Other (HFNC at 40 L)
GI: Soft, Non Distended and Non Tender
Neurology: Awake, AO x 3 and No Motor Deficits
Skin: Warm, Dry and Good Color
Labs/Micro/Reports
Lab Data
10/23/25 02:50
10/23/25 02:50
Laboratory Results
10/22/25 10/22/25
14:56 16:43
PT 14.5
INR 1.15
APTT 33.8
pH Cancelled
pCO2 Cancelled
pO2 Cancelled
HCO3 Cancelled
O2 Delivery Level Cancelled
Microbiology
10/22/25 09:04 Nasal Swab Influenza Types A & B (JANINA) - Final
Negative for Influenza A & B, NAAT
Negative results must be combined with clinical observations
and patient history.
Nucleic Acid Amplification test (NAAT)performed on the
[employer] platform.
[2025-10-23] MEDS: MUCINEX 1200 MG PO ×2 (09:53→20:33)
--- NOTE | 2025-10-23 10:00 | PTCARENOTE ---
Complete assessment done, pt also seen by Dr Yip. Fio2 was received at 40L, 35% high flow. Freq harsh coughs. O2 sat=95%. Occ thin to thick cl mucus coughed up. Pt now changed to 4l nc, and tolerating well. Exp wheezed remain audible. PHR SR 98, BP
163/82. Pt tolerated his reg diet breakfast. voiding in urinal yellow urine. Call macias at side. Mouth care done. Pt's daughter at bedside.
--- NOTE | 2025-10-23 11:39 | CM ---
Initial assessment completed with patient and daughter. Patient lives with daughter and 22 y/o granddaughter and 17 y/o grandson in a 2 story plus basement home with B/B on 1st and 1 step to enter. 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
ambulation, drives. Uses a quad cane for uneven surfaces when outside. Has a nebulizer machine. Currently on O2. No O2 at baseline. No in-home services. Does have HC-POA. No VA benefits. No psychiatric hospitalizations. PCP is Dr. Madrid.
Pharmacy is [facility] on [address] in [place]. Discharge POC: TBD. Home with NN vs HH. Check for O2 needs.
[2025-10-23] MEDS: ZITHROMAX INFUSION 250 IV (11:47)
--- NOTE | 2025-10-23 12:08 | W.PN.HOSP.TC ---
Today's Communication/Plan
-
Wean O2 as tolerated
Continue with IV steroids
Bronchodilators
IV azithromycin
Assessment / Plan
Assessment / Plan
General: In acute respiratory distress, seen on high flow nasal cannula,
HEENT: NormoCephalic and Anicteric
Respiratory:+exp wheezing b/l, nasal cannula noted
Cardiac: S1/S2 and Regular Rhythm
GI: Soft, Non Tender and Non Distended
Musculoskeletal: Trace, compression socks noted
Skin: Warm and Dry
Neuro: AO x 3
Hematologic/Lymphatic: No Lymphadenopathy
Psych: Calm
#Acute hypoxic respiratory failure secondary to acute COPD exacerbation
#Former tobacco user
Maintain O2 saturation greater than 88%
Wean O2 as tolerated
Status post 125 mg of Solu-Medrol in the ER
Continue with IV Decadron
Sputum sample. Influenza & COVID-negative
Continue with IV azithromycin.
Bronchodilators standing and as needed
If no improvement can consider CT of the chest
Speech evaluation and recommended FEES
proBNP not significantly elevated.
Discussed about morphine intermittently for air hunger. Patient discussed among family members.
Pulmonary recs
GERD
Continue with anti-acid medication
Chronic lower extremity edema
Continue with Lasix
History of gastric cancer
History of prostate cancer status post resection and radiation
DVT prophylaxis Lovenox
Discussed with daughter at bedside in detail
Anticipated Discharge: > 48 hours
Subjective/Interval History
-
Date of Service: October 23, 2025
Overnight events noted currently on nasal cannula
Remains with tachypnea
Dry cough
Objective Data
-
Labs:
Laboratory Results
10/23/25
02:50
WBC 9.0
Hgb 13.2
Hct 39.8
Plt Count 185
Sodium 137
Potassium 4.6
Chloride 105
Carbon Dioxide 25
BUN 27 H
Creatinine 1.0
Glucose 150 H
Calcium 9.4
Vital Signs:
Vital Signs
Temp Pulse Resp BP Pulse Ox
97.7 F 104 21 163/83 91
10/23/25 08:00 10/23/25 11:50 10/23/25 11:50 10/23/25 10:00 10/23/25 11:50
I&O
10/22/25 10/23/25 10/24/25
06:59 06:59 06:59
Intake Total 240 / 240
Output Total 1375 / 1375
Balance -1135 / -1135
Data Reviewed
-
Total Time Spent with Patient (in minutes): 55
--- NOTE | 2025-10-23 13:16 | PTCARENOTE ---
Pt seen by hospitalist and java developer consultant, and cleared to go to tele room when available.
--- NOTE | 2025-10-23 13:24 | PTCARENOTE ---
Pt cleared to go to room 2136, report given to receiving RN. PT presently on 4l nc, O2 sat=95%, HR 95. All belongings packed, and pt brought over now with O2, tele monitor and this RN, VSS.
--- NOTE | 2025-10-23 14:00 | PTCARENOTE ---
PT was brought to new room via wheelchair, and set up sitting OOB in chair with assistance on 4l nc. Sputum culture sent prior to transfer.
[2025-10-23] MEDS: SODIUM CHLORIDE 3% FOR INHALATION 1 VIAL INH ×2 (14:37→19:11)
[2025-10-23] MEDS: LOVENOX 40 MG SC (17:47)
[2025-10-23] MEDS: PEPCID 20 MG PO (20:33)
[2025-10-23] MEDS: NON-FORMULARY ITEM 25 MG PO (20:35)
[2025-10-23] MEDS: TESSALON PERLES 200 MG PO (22:28)
[2025-10-23] MEDS: MORPHINE ORAL SOLUTION 5 MG PO (22:28)
[2025-10-24 03:07] VITALS: BP 149/73
[2025-10-24] MEDS: DECADRON 4 MG IV ×2 (05:29→18:03)
[2025-10-24 05:49] LABS: Hematocrit 41.1 % (39.0-52.0); Hemoglobin 13.1 g/dL (13.0-18.0); Mean Corp Hgb Conc. 31.9 g/dL (33.0-37.0); Mean Corpuscular Volume 90.1 fL (80.0-94.0); Nucleated Red Blood Cells % 0 % (-); Platelet Count 177 10^3/uL (130-400); Red Cell Dist. Width 13.4 % (11.5-14.5)
[2025-10-24 06:17] LABS: Blood Urea Nitrogen 34 mg/dl (9-20); Calcium 9.3 mg/dl (8.4-10.2); Carbon Dioxide 28 mmol/L (22-30); Chloride 105 mmol/L (98-107); Estimated Creatinine Clearance 60 ml/min; Glucose 123 mg/dl (70-99); Potassium 4.6 mmol/L (3.5-5.1); Sodium 137 mmol/L (135-145); eGFR > 60.00
[2025-10-24 07:00] VITALS: BP 142/70
[2025-10-24] MEDS: DUONEB 3 ML INH ×4 (07:11→19:37)
[2025-10-24] MEDS: PULMICORT 0.5 MG INH ×2 (07:11→19:37)
[2025-10-24] MEDS: SODIUM CHLORIDE 3% FOR INHALATION 1 VIAL INH ×4 (07:11→19:37)
[2025-10-24] MEDS: THERAGRAN 1 TABLET PO (08:00)
[2025-10-24] MEDS: B COMPLEX w/VITAMIN C 1 CAPLET PO (08:00)
[2025-10-24] MEDS: VITAMIN C 500 MG PO (08:00)
[2025-10-24] MEDS: MUCINEX 1200 MG PO ×2 (08:00→20:33)
[2025-10-24] MEDS: METAMUCIL, KONSYL PO ×2 (08:00→08:05)
[2025-10-24] MEDS: ZITHROMAX 500 MG PO (08:00)
[2025-10-24] MEDS: LASIX 20 MG PO (08:00)
[2025-10-24] MEDS: NON-FORMULARY ITEM 10 MG PO (08:01)
[2025-10-24 11:00] VITALS: BP 132/63
--- NOTE | 2025-10-24 11:07 | W.PN.PUL3 ---
Today's Communication / Plan
-
Continue systemic corticosteroids
Continue nebulizer therapy
3% saline continuous for now
Hold inhalers for now
Physical therapy/Occupational Therapy
Continue low-dose macrolide therapy for anti-inflammatory properties
Saline nasal spray
On Tuesdays
Mucolytic's
Will follow
Assessment
-
Assessment: Patient is an 80-year-old male with PMH of severe COPD (follows with Dr. Fox) and GERD undergoing management in the ICU after presenting 10/22 with SOB, cough, and respiratory distress. Patient has had 2 COPD exacerbations over the
last few months, which required outpatient treatment with prednisone and azithromycin. On presentation, patient was afebrile, hypertensive, tachycardic, tachypneic, and hypoxic. In the ED, patient was administered Solu-Medrol, DuoNebs, antibiotics
(ceftriaxone, azithromycin), and BiPAP. Labs reassuring, with no leukocytosis, proBNP 332, and VBG showing normal pH, CO2, and bicarb. CXR showed hyperinflation c/w COPD and mild interstitial opacification. Patient is undergoing management for
acute exacerbation of COPD.
Pulmonary following for acute exacerbation of COPD 10/24/2025
Impression:
#AECOPD
-
#GERD
#History of gastric cancer s/p partial gastrectomy (2007)
#History of prostate cancer s/p resection (2003)
History of severe LYWT-bwtoym-vk with Dr. Fox
Not hypercapnic on ABG this admission
No evidence for peripheral eosinophilia
Last CT chest 2023 without evidence of bronchiectasis.
Plan:
-
Clinically improved since admission.
-
Severe acute exacerbation of COPD-likely tracheobronchitis.
Previous to this, patient is not a frequent exacerbator.
On last 6-minute walk testing without oxygen requirements.
PFTs 08/18/2025 showed severe obstruction
Chest x-ray without acute abnormalities
2 exacerbations in the last few months treated in the outpatient setting.
-
Transition from HFNC 40 L 40% >>>>>to NC 4 L-Home oxygen assessment prior to discharge.
Continue budesonide, DuoNebs scheduled---> will discharge on this regimen until he clinically improved. Holding Trelegy for now.
Continue azithromycin 500 mg p.o. MWF to decrease bronchitic symptoms and exacerbation rate.
Saline nasal spray
Patient states that he tries to avoid antihistamines with his prior history of prostate issues.
-
Part of his exertional symptoms in the outpatient setting are due to imbalance and possibly peripheral neuropathy.
-
morphine 5 mg p.o. every 6 hours as needed to limit air hunger, improve respiratory status
-
Continue dexamethasone 4 mg IV q12h for now, with plan to transition to oral steroids in the coming days--> likely will need prolonged taper.
Patient will likely benefit from continued low-dose steroid (prednisone 10 mg p.o.) outpatient until seen again by pulmonology
Continue guaifenesin scheduled, benzonatate as needed for productive cough
Encourage IS, OOB
-
Discussed importance of pulmonary rehab outpatient with patient
-
History of GERD: Last exacerbation might have triggered by severe GERD episode.
DVT PPx: Lovenox 40 mg
-
Follow-up with Dr. Fox in the next 2 weeks after discharge.
Subjective Data
-
Date of Service:
Date of Service: October 24, 2025
Chief Complaint: Pulmonary Follow Up (Acute exacerbation of COPD)
Review of Systems
General: Fever (n)
Cardiopulmonary: Dyspnea and Dyspnea on Exertion
GI: Abdominal Pain (n)
Objective Data
Data Reviewed
Vital Signs / I&O / Oxygen:
Vital Signs
Temp Pulse Resp BP Pulse Ox
97.5 F 80 18 142/70 93
10/24/25 07:00 10/24/25 08:00 10/24/25 07:14 10/24/25 08:00 10/24/25 07:14
Intake and Output
10/23/25 10/24/25 10/25/25
06:59 06:59 06:59
Intake Total 240 / 240 1720 / 1720
Output Total 1375 / 1375 1425 / 1425
Balance -1135 / -1135 295 / 295
SaO2 93
Nasal Cannula flow liters per 5
minute
Physical Exam
General: Comfortable
HEENT: Normocephalic
Cardiovascular: S1-S2
Respiratory: Non-Labored Respirations
GI: Soft and Non Distended
Neurology: Awake, Alert, AO x 3 and No Motor Deficits
Skin: Warm
Labs/Micro/Reports
Lab Data
10/24/25 05:26
10/24/25 05:26
Microbiology
10/23/25 13:43 Sputum Respiratory Culture - Final
10/23/25 13:43 Sputum Gram Stain - Final
10/22/25 09:04 Nasal Swab Influenza Types A & B (JANINA) - Final
Negative for Influenza A & B, NAAT
Negative results must be combined with clinical observations
and patient history.
Nucleic Acid Amplification test (NAAT)performed on the
[employer] platform.
--- NOTE | 2025-10-24 11:09 | W.PN.HOSP.TC ---
Today's Communication/Plan
-
Continue with IV steroids
Wean oxygen as tolerated
Continue bronchodilators
Expect slow improvement
Assessment / Plan
Assessment / Plan
General: in no acute distress,
HEENT: NormoCephalic and Anicteric
Respiratory:+exp wheezing b/l, nasal cannula noted
Cardiac: S1/S2 and Regular Rhythm
GI: Soft, Non Tender and Non Distended
Musculoskeletal: Trace, compression socks noted
Skin: Warm and Dry
Neuro: AO x 3
Hematologic/Lymphatic: No Lymphadenopathy
Psych: Calm
#Acute hypoxic respiratory failure secondary to acute COPD exacerbation
#Former tobacco user
Maintain O2 saturation greater than 88%
Wean O2 as tolerated
Status post 125 mg of Solu-Medrol in the ER
Continue with IV Decadron
Sputum sample. Influenza & COVID-negative
Continue azithromycin. 500 mg 3 times daily weekly
BiPAP nightly and as needed. Refused overnight.
Bronchodilators standing and as needed
If no improvement can consider CT of the chest
Speech evaluation and recommended FEES
proBNP not significantly elevated.
Morphine as needed for air hunger.
Pulmonary recs
GERD
Continue with anti-acid medication
Chronic lower extremity edema
Continue with Lasix
History of gastric cancer
History of prostate cancer status post resection and radiation
DVT prophylaxis Lovenox
Anticipated Discharge: > 48 hours
Subjective/Interval History
-
Date of Service: October 24, 2025
states of sob with activity
remains on oxygen
Objective Data
-
Labs:
Laboratory Results
10/24/25
05:26
WBC 12.5 H
Hgb 13.1
Hct 41.1
Plt Count 177
Sodium 137
Potassium 4.6
Chloride 105
Carbon Dioxide 28
BUN 34 H
Creatinine 1.1
Glucose 123 H
Calcium 9.3
Vital Signs:
Vital Signs
Temp Pulse Resp BP Pulse Ox
97.5 F 80 18 142/70 93
10/24/25 07:00 10/24/25 08:00 10/24/25 07:14 10/24/25 08:00 10/24/25 07:14
I&O
10/23/25 10/24/25 10/25/25
06:59 06:59 06:59
Intake Total 240 / 240 1720 / 1720
Output Total 1375 / 1375 1425 / 1425
Balance -1135 / -1135 295 / 295
[2025-10-24] MEDS: OCEAN, SALINE MIST 2 SPRAYS NASAL (11:52)
[2025-10-24 15:00] VITALS: BP 141/62
[2025-10-24] MEDS: LOVENOX 40 MG SC (18:04)
[2025-10-24 19:25] VITALS: BP 145/79
[2025-10-24] MEDS: NON-FORMULARY ITEM 25 MG PO (20:35)
[2025-10-24] MEDS: PEPCID 20 MG PO (20:36)
[2025-10-24] MEDS: TYLENOL 650 MG PO (20:39)
[2025-10-24] MEDS: TESSALON PERLES 200 MG PO (20:48)
[2025-10-24] MEDS: MORPHINE ORAL SOLUTION 5 MG PO (20:48)
[2025-10-24 23:11] VITALS: BP 126/67
[2025-10-25 03:39] VITALS: BP 142/71
[2025-10-25] MEDS: DECADRON 4 MG IV ×2 (05:33→20:32)
[2025-10-25] MEDS: FLUSH (NSS) 2 FLUSH IV ×3 (05:34→20:41)
[2025-10-25] MEDS: SODIUM CHLORIDE 3% FOR INHALATION 1 VIAL INH ×4 (07:17→18:09)
[2025-10-25] MEDS: PULMICORT 0.5 MG INH (07:18)
[2025-10-25] MEDS: DUONEB 3 ML INH ×3 (07:18→14:50)
[2025-10-25 07:25] VITALS: BP 145/74
[2025-10-25 08:37] LABS: Hematocrit 42.3 % (39.0-52.0); Hemoglobin 14.0 g/dL (13.0-18.0); Mean Corp Hgb Conc. 33.1 g/dL (33.0-37.0); Mean Corpuscular Volume 90.4 fL (80.0-94.0); Nucleated Red Blood Cells % 0 % (-); Platelet Count 198 10^3/uL (130-400); Red Cell Dist. Width 13.3 % (11.5-14.5)
[2025-10-25 09:06] LABS: Blood Urea Nitrogen 34 mg/dl (9-20); Calcium 9.2 mg/dl (8.4-10.2); Carbon Dioxide 27 mmol/L (22-30); Chloride 103 mmol/L (98-107); Estimated Creatinine Clearance 66 ml/min; Glucose 129 mg/dl (70-99); Potassium 4.5 mmol/L (3.5-5.1); Sodium 137 mmol/L (135-145); eGFR > 60.00
[2025-10-25] MEDS: THERAGRAN 1 TABLET PO (09:08)
[2025-10-25] MEDS: VITAMIN C 500 MG PO (09:08)
[2025-10-25] MEDS: B COMPLEX w/VITAMIN C 1 CAPLET PO (09:08)
[2025-10-25] MEDS: LASIX 20 MG PO (09:08)
[2025-10-25] MEDS: MUCINEX 1200 MG PO ×2 (09:08→20:32)
[2025-10-25] MEDS: METAMUCIL, KONSYL PO (09:09)
[2025-10-25] MEDS: NON-FORMULARY ITEM 10 MG PO (09:09)
[2025-10-25 11:05] VITALS: BP 103/69
--- NOTE | 2025-10-25 12:16 | W.PN.HOSP.TC ---
Addendum entered and electronically signed by Dean Olvera MD 10/25/25 14:42:
of note. tele strips reviewed with PVCs.
Original Note:
Today's Communication/Plan
-
Cont IV steroids
cont bronchodilators
wean o2 as tolerated
Assessment / Plan
Assessment / Plan
General: in no acute distress,
HEENT: NormoCephalic and Anicteric
Respiratory:+exp wheezing b/l, nasal cannula noted
Cardiac: S1/S2 and Regular Rhythm
GI: Soft, Non Tender and Non Distended
Musculoskeletal: Trace, compression socks noted
Skin: Warm and Dry
Neuro: AO x 3
Hematologic/Lymphatic: No Lymphadenopathy
Psych: Calm
#Acute hypoxic respiratory failure secondary to acute COPD exacerbation
#Former tobacco user
Maintain O2 saturation greater than 88%
Wean O2 as tolerated
Status post 125 mg of Solu-Medrol in the ER
Continue with IV Decadron 4mg q12h
Sputum sample. Influenza & COVID-negative
Continue azithromycin. 500 mg 3 times daily weekly
BiPAP nightly and as needed. Refused overnight.
Bronchodilators standing and as needed
Speech evaluation and s/p FEES -regular speech
proBNP not significantly elevated.
Morphine as needed for air hunger.
Pulmonary recs
GERD
Continue with anti-acid medication
Chronic lower extremity edema
Continue with Lasix
History of gastric cancer
History of prostate cancer status post resection and radiation
DVT prophylaxis Lovenox
Anticipated Discharge: > 48 hours
Subjective/Interval History
-
Date of Service: October 25, 2025
states of shortness of breath with mild exertion
remains on 5L
Objective Data
-
Labs:
Laboratory Results
10/25/25
08:10
WBC 10.9 H
Hgb 14.0
Hct 42.3
Plt Count 198
Sodium 137
Potassium 4.5
Chloride 103
Carbon Dioxide 27
BUN 34 H
Creatinine 1.0
Glucose 129 H
Calcium 9.2
Vital Signs:
Vital Signs
Temp Pulse Resp BP Pulse Ox
97.9 F 87 17 103/69 94
10/25/25 11:05 10/25/25 11:19 10/25/25 11:19 10/25/25 11:05 10/25/25 11:19
I&O
10/24/25 10/25/25 10/26/25
06:59 06:59 06:59
Intake Total 1720 / 1720 1440 / 1440
Output Total 1425 / 1425 1450 / 1450
Balance 295 / 295 -10 / -10
--- NOTE | 2025-10-25 12:26 | W.PN.PUL3 ---
Today's Communication / Plan
-
Transition to p.o. prednisone today
Change nebs to inhalers to reduce disturbances at night
Add melatonin due to insomnia
Encouraged out of bed, will need eventual home O2 eval
Outpatient follow-up recommended
Assessment
-
Assessment: Patient is an 80-year-old male with PMH of severe COPD (follows with Dr. Fox) and GERD undergoing management in the ICU after presenting 10/22 with SOB, cough, and respiratory distress. Patient has had 2 COPD exacerbations over the
last few months, which required outpatient treatment with prednisone and azithromycin. On presentation, patient was afebrile, hypertensive, tachycardic, tachypneic, and hypoxic. In the ED, patient was administered Solu-Medrol, DuoNebs, antibiotics
(ceftriaxone, azithromycin), and BiPAP. Labs reassuring, with no leukocytosis, proBNP 332, and VBG showing normal pH, CO2, and bicarb. CXR showed hyperinflation c/w COPD and mild interstitial opacification. Patient is undergoing management for
acute exacerbation of COPD.
Pulmonary following for acute exacerbation of COPD 10/24/2025
Impression:
#AECOPD
-
#GERD
#History of gastric cancer s/p partial gastrectomy (2007)
#History of prostate cancer s/p resection (2003)
History of severe CHOT-oswnaz-ei with Dr. Fox
Not hypercapnic on ABG this admission
No evidence for peripheral eosinophilia
Last CT chest 2023 without evidence of bronchiectasis.
Plan:
-
Clinically improved since admission. He remains on 5 L
Wean as tolerated, will likely need eventual home O2 assessment
-
Severe acute exacerbation of COPD-likely tracheobronchitis.
Previous to this, patient is not a frequent exacerbator.
On last 6-minute walk testing without oxygen requirements.
PFTs 08/18/2025 showed severe obstruction
Chest x-ray without acute abnormalities
2 exacerbations in the last few months treated in the outpatient setting.
-
Transition from HFNC 40 L 40% >>>>>to NC 4 L-Home oxygen assessment prior to discharge.
Continue budesonide, DuoNebs scheduled---> transition to inhalers
Continue azithromycin 500 mg p.o. MWF to decrease bronchitic symptoms and exacerbation rate.
Saline nasal spray
Patient states that he tries to avoid antihistamines with his prior history of prostate issues.
-
Part of his exertional symptoms in the outpatient setting are due to imbalance and possibly peripheral neuropathy.
-
Continue morphine 5 mg p.o. every 6 hours as needed to limit air hunger, improve respiratory status
Due to insomnia, will add melatonin and limit interventions at night
-
Continue dexamethasone 4 mg IV q12h for now, with plan to transition to oral steroids today--> likely will need prolonged taper.
Patient will likely benefit from continued low-dose steroid (prednisone 10 mg p.o.) outpatient until seen again by pulmonology
Continue guaifenesin scheduled, benzonatate as needed for productive cough
Encourage IS, OOB
-
Discussed importance of pulmonary rehab outpatient with patient
-
History of GERD: Last exacerbation might have triggered by severe GERD episode.
DVT PPx: Lovenox 40 mg
-
Follow-up with Dr. Fox in the next 2 weeks after discharge.
Total time spent on this consultation/encounter __51__ minutes which includes review of history, physical exam, medications, laboratory data, personal review of imaging, extensive review of outpatient records, discussion with care team and
respiratory therapy.
Subjective Data
-
Date of Service:
Date of Service: October 25, 2025
Chief Complaint: Pulmonary Follow Up (Acute exacerbation of COPD)
Subjective:
Having difficulty sleeping
He is not sure if he is ready to go home
Objective Data
Data Reviewed
Vital Signs / I&O / Oxygen:
Vital Signs
Temp Pulse Resp BP Pulse Ox
97.9 F 87 17 103/69 94
10/25/25 11:05 10/25/25 11:19 10/25/25 11:19 10/25/25 11:05 10/25/25 11:19
Intake and Output
10/24/25 10/25/25 10/26/25
06:59 06:59 06:59
Intake Total 1720 / 1720 1440 / 1440
Output Total 1425 / 1425 1450 / 1450
Balance 295 / 295 -10 / -10
SaO2 94
Nasal Cannula flow liters per 5
minute
Physical Exam
General: Comfortable and Other (No acute distress)
HEENT: Normocephalic, Anicteric and Moist Mucous Membranes
Cardiovascular: S1-S2 and Regular Rhythm
Respiratory: Clear (Diminished overall) and Non-Labored Respirations
GI: Soft and Non Distended
Neurology: Awake, Alert, Oriented, AO x 3 and No Motor Deficits
Skin: Warm
Labs/Micro/Reports
Lab Data
10/25/25 08:10
10/25/25 08:10
Microbiology
10/23/25 13:43 Sputum Respiratory Culture - Final
10/23/25 13:43 Sputum Gram Stain - Final
10/22/25 09:04 Nasal Swab Influenza Types A & B (JANINA) - Final
Negative for Influenza A & B, NAAT
Negative results must be combined with clinical observations
and patient history.
Nucleic Acid Amplification test (NAAT)performed on the
[employer] platform.
[2025-10-25 15:20] VITALS: BP 127/73
[2025-10-25 16:04] LABS: Magnesium 2.3 mg/dl (1.6-2.3)
[2025-10-25] MEDS: LOVENOX 40 MG SC (17:10)
[2025-10-25] MEDS: SYMBICORT 160/4.5 MCG INHALER 2 PUFF INH (18:09)
[2025-10-25] MEDS: SPIRIVA RESPIMAT 2.5 MCG 2 PUFF INH (18:09)
[2025-10-25 19:30] VITALS: BP 144/64
[2025-10-25] MEDS: NON-FORMULARY ITEM 25 MG PO (20:36)
[2025-10-25] MEDS: PEPCID 20 MG PO (20:39)
[2025-10-25] MEDS: TYLENOL 650 MG PO (20:42)
[2025-10-25] MEDS: MELATONIN 10 MG PO (21:35)
[2025-10-25] MEDS: MORPHINE ORAL SOLUTION 5 MG PO (21:38)
[2025-10-25] MEDS: TESSALON PERLES 200 MG PO (21:40)
[2025-10-25 23:55] VITALS: BP 113/60
[2025-10-26 03:34] VITALS: BP 117/58
[2025-10-26 07:20] VITALS: BP 138/71
[2025-10-26] MEDS: MUCINEX 1200 MG PO ×2 (07:52→20:25)
[2025-10-26] MEDS: THERAGRAN 1 TABLET PO (07:53)
[2025-10-26] MEDS: B COMPLEX w/VITAMIN C 1 CAPLET PO (07:53)
[2025-10-26] MEDS: DELTASONE 50 MG PO (07:53)
[2025-10-26] MEDS: LASIX 20 MG PO (07:53)
[2025-10-26] MEDS: VITAMIN C 500 MG PO (07:53)
[2025-10-26] MEDS: METAMUCIL, KONSYL PO (07:57)
[2025-10-26] MEDS: NON-FORMULARY ITEM 10 MG PO (08:05)
[2025-10-26] MEDS: SYMBICORT 160/4.5 MCG INHALER 2 PUFF INH ×2 (08:20→19:21)
[2025-10-26] MEDS: SODIUM CHLORIDE 3% FOR INHALATION 1 VIAL INH ×4 (08:20→19:21)
[2025-10-26 11:00] VITALS: BP 115/62
--- NOTE | 2025-10-26 11:30 | W.PN.HOSP.TC ---
Today's Communication/Plan
-
cont to wean down oxygen
azithromycin TID weekly
nebs continued
OOB/PT eval -may require placement
Assessment / Plan
Assessment / Plan
General: in no acute distress,
HEENT: NormoCephalic and Anicteric
Respiratory:+exp wheezing b/l-mild improvement, nasal cannula noted
Cardiac: S1/S2 and Regular Rhythm
GI: Soft, Non Tender and Non Distended
Musculoskeletal: Trace, compression socks noted
Skin: Warm and Dry
Neuro: AO x 3
Hematologic/Lymphatic: No Lymphadenopathy
Psych: Calm
#Acute hypoxic respiratory failure secondary to acute COPD exacerbation
#Former tobacco user
Maintain O2 saturation greater than 88%
Wean O2 as tolerated-remains on 5L oxygen. Home O2 eval prior to discharge.
Status post 125 mg of Solu-Medrol in the ER
Cont with steroids. Probably will require prolong taper.
Sputum sample. Influenza & COVID-negative
Continue azithromycin. 500 mg 3 times daily weekly
BiPAP nightly and as needed. Refused overnight.
Bronchodilators standing and as needed
Speech evaluation and s/p FEES -regular speech
proBNP not significantly elevated.
Morphine as needed for air hunger.
Pulmonary recs
GERD
Continue with anti-acid medication
Chronic lower extremity edema
Continue with Lasix
History of gastric cancer
History of prostate cancer status post resection and radiation
DVT prophylaxis Lovenox
PT eval-may require placement.
Anticipated Discharge: 24 - 48 hours
Subjective/Interval History
-
Date of Service: October 26, 2025
remains with sob with exertion
on 5L
Objective Data
-
Vital Signs:
Vital Signs
Temp Pulse Resp BP Pulse Ox
97.9 F 76 18 115/62 93
10/26/25 11:00 10/26/25 11:00 10/26/25 11:00 10/26/25 11:00 10/26/25 11:00
I&O
10/25/25 10/26/25 10/27/25
06:59 06:59 06:59
Intake Total 1440 / 1440 780 / 780
Output Total 1450 / 1450 615 / 615
Balance -10 / -10 165 / 165
--- NOTE | 2025-10-26 11:48 | W.PN.PUL3 ---
Today's Communication / Plan
-
Doing well, remains on 4 L but likely can be weaned further down
Home O2 assessment ordered
He is transition to p.o. prednisone, prolonged taper at discharge
Outpatient follow-up recommended
Hopeful discharge planning in the next 24 hours if stable
Discussed at bedside with patient and
Assessment
-
Patient is an 80-year-old male with PMH of severe COPD (follows with Dr. Fox) and GERD undergoing management in the ICU after presenting 10/22 with SOB, cough, and respiratory distress. Patient has had 2 COPD exacerbations over the last few
months, which required outpatient treatment with prednisone and azithromycin. On presentation, patient was afebrile, hypertensive, tachycardic, tachypneic, and hypoxic. In the ED, patient was administered Solu-Medrol, DuoNebs, antibiotics
(ceftriaxone, azithromycin), and BiPAP. Labs reassuring, with no leukocytosis, proBNP 332, and VBG showing normal pH, CO2, and bicarb. CXR showed hyperinflation c/w COPD and mild interstitial opacification. Patient is undergoing management for
acute exacerbation of COPD. Pulmonary following for acute exacerbation of COPD 10/24/2025
AECOPD
Acute hypoxic respiratory failure
Conditions present [employer]
#GERD
#History of gastric cancer s/p partial gastrectomy (2007)
#History of prostate cancer s/p resection (2003)
History of severe DDHK-latpcw-yz with Dr. Fox
Not hypercapnic on ABG this admission
No evidence for peripheral eosinophilia
Last CT chest 2023 without evidence of bronchiectasis.
Plan:
-
Clinically improved since admission. He remains on 4 L --this can be further weaned
Will place home O2 assessment
-
Severe acute exacerbation of COPD-likely tracheobronchitis.
Previous to this, patient is not a frequent exacerbator.
On last 6-minute walk testing without oxygen requirements.
PFTs 08/18/2025 showed severe obstruction
Chest x-ray without acute abnormalities
2 exacerbations in the last few months treated in the outpatient setting.
Prednisone taper
-
Transition from HFNC 40 L 40% >>>>>to NC 4 L-Home oxygen assessment prior to discharge.
Continue budesonide, DuoNebs scheduled---> transition to inhalers
Continue azithromycin 500 mg p.o. MWF to decrease bronchitic symptoms and exacerbation rate.
Saline nasal spray
Patient states that he tries to avoid antihistamines with his prior history of prostate issues.
-
Part of his exertional symptoms in the outpatient setting are due to imbalance and possibly peripheral neuropathy.
-
Continue morphine 5 mg p.o. every 6 hours as needed to limit air hunger, improve respiratory status
Due to insomnia, continue melatonin and limit interventions at night
-
Prednisone taper
Patient will likely benefit from continued low-dose steroid (prednisone 10 mg p.o.) outpatient until seen again by pulmonology
Continue guaifenesin scheduled, benzonatate as needed for productive cough
Encourage IS, OOB
-
Discussed importance of pulmonary rehab outpatient with patient
-
History of GERD: Last exacerbation might have triggered by severe GERD episode.
DVT PPx: Lovenox 40 mg
-
Follow-up with Dr. Fox in the next 2 weeks after discharge.
Hopeful discharge planning in the next 24 hours
Updated patient and at bedside
Total time spent on this consultation/encounter __51__ minutes which includes review of history, physical exam, medications, laboratory data, personal review of imaging, extensive review of outpatient records, discussion with care team and
respiratory therapy.
Subjective Data
-
Date of Service:
Date of Service: October 26, 2025
Chief Complaint: Pulmonary Follow Up (Acute exacerbation of COPD)
Subjective:
Feels better this a.m., was looking forward to discharge
He remains at 4 L
Objective Data
Data Reviewed
Vital Signs / I&O / Oxygen:
Vital Signs
Temp Pulse Resp BP Pulse Ox
97.9 F 76 18 115/62 93
10/26/25 11:00 10/26/25 11:00 10/26/25 11:00 10/26/25 11:00 10/26/25 11:00
Intake and Output
10/25/25 10/26/25 10/27/25
06:59 06:59 06:59
Intake Total 1440 / 1440 780 / 780
Output Total 1450 / 1450 615 / 615
Balance -10 / -10 165 / 165
SaO2 93
Nasal Cannula flow liters per 4
minute
Physical Exam
General: Comfortable and Other (No acute distress)
HEENT: Normocephalic, Anicteric and Moist Mucous Membranes
Cardiovascular: S1-S2 and Regular Rhythm
Respiratory: Clear (Diminished overall) and Non-Labored Respirations
GI: Soft and Non Distended
Neurology: Awake, Alert, Oriented, AO x 3 and No Motor Deficits
Skin: Warm
Labs/Micro/Reports
Lab Data
10/25/25 08:10
10/25/25 08:10
Microbiology
10/23/25 13:43 Sputum Respiratory Culture - Final
10/23/25 13:43 Sputum Gram Stain - Final
--- NOTE | 2025-10-26 14:42 | PTCARENOTE ---
Patient on day 4 of no bm. + Bowel sounds in all quadrants. Patient states passing gas. No c/o at this time. PRN Cynthiaot offered, Pt refused. Md made aware.Plan of care ongoing.
[2025-10-26 15:20] VITALS: BP 137/70
[2025-10-26] MEDS: LOVENOX 40 MG SC (17:28)
[2025-10-26 19:09] VITALS: BP 115/72
[2025-10-26] MEDS: OCEAN, SALINE MIST 2 SPRAYS NASAL (20:25)
[2025-10-26] MEDS: TESSALON PERLES 200 MG PO (21:45)
[2025-10-26] MEDS: MELATONIN 10 MG PO (21:45)
[2025-10-26] MEDS: NON-FORMULARY ITEM 25 MG PO (21:45)
[2025-10-26] MEDS: PEPCID 20 MG PO (21:45)
[2025-10-26] MEDS: MORPHINE ORAL SOLUTION 5 MG PO (21:47)
[2025-10-26 23:09] VITALS: BP 134/74
[2025-10-27] VITALS (7 sets, daily range): BP systolic 112–180; BP diastolic 56–78; PULSE 78; O2SAT 95
[2025-10-27] MEDS: SODIUM CHLORIDE 3% FOR INHALATION 1 VIAL INH ×4 (07:44→19:39)
[2025-10-27] MEDS: SPIRIVA RESPIMAT 2.5 MCG 2 PUFF INH (07:44)
[2025-10-27] MEDS: SYMBICORT 160/4.5 MCG INHALER 2 PUFF INH ×2 (07:44→19:36)
[2025-10-27] MEDS: LASIX 20 MG PO (08:37)
[2025-10-27] MEDS: DELTASONE 50 MG PO (08:37)
[2025-10-27] MEDS: THERAGRAN 1 TABLET PO (08:38)
[2025-10-27] MEDS: NON-FORMULARY ITEM 1 MG PO (08:38)
[2025-10-27] MEDS: VITAMIN C 500 MG PO (08:38)
[2025-10-27] MEDS: B COMPLEX w/VITAMIN C 1 CAPLET PO (08:38)
[2025-10-27] MEDS: METAMUCIL, KONSYL 1 PACKET PO (08:38)
[2025-10-27] MEDS: MUCINEX 1200 MG PO ×2 (08:38→20:37)
[2025-10-27] MEDS: ZITHROMAX 500 MG PO (08:38)
--- NOTE | 2025-10-27 08:50 | W.PN.PUL.V3 ---
Today's Communication / Plan
-
Wean oxygen.
Increase activity.
Prednisone 50 mg daily with taper.
Nebulizers and inhalers In addition to mucolytic's continued.
Outpatient pulmonary follow-up
Assessment
-
80-year-old male with PMH of severe COPD (follows with Dr. Fox) and GERD undergoing management in the ICU after presenting 10/22 with SOB, cough, and respiratory distress. Patient has had 2 COPD exacerbations over the last few months, which
required outpatient treatment with prednisone and azithromycin. On presentation, patient was afebrile, hypertensive, tachycardic, tachypneic, and hypoxic. In the ED, patient was administered Solu-Medrol, DuoNebs, antibiotics (ceftriaxone,
azithromycin), and BiPAP. Labs reassuring, with no leukocytosis, proBNP 332, and VBG showing normal pH, CO2, and bicarb. CXR showed hyperinflation c/w COPD and mild interstitial opacification. Patient is undergoing management for acute
exacerbation of COPD. Pulmonary following for acute exacerbation of COPD 10/24/2025
AECOPD
Acute hypoxic respiratory failure
Conditions present [employer]:
#GERD
#History of gastric cancer s/p partial gastrectomy (2007)
#History of prostate cancer s/p resection (2003)
History of severe OEPV-jeyqxa-mh with Dr. Fox
Not hypercapnic on ABG this admission
No evidence for peripheral eosinophilia
Last CT chest 2023 without evidence of bronchiectasis.
Plan:
Severe acute exacerbation of COPD-likely tracheobronchitis.
Previous to this, patient is not a frequent exacerbator.
On last 6-minute walk testing without oxygen requirements.
PFTs 08/18/2025 showed severe obstruction
Respiratory status slowly improving but still on supplemental options-reports no oxygen at home.
Continue supplemental oxygen-currently on 4 L.
Continue nebulizers.
Symbicort and Spiriva Continue
Mucinex.
Chest x-ray was without significant abnormalities.
Prednisone taper.
Continue azithromycin 500 mg Monday, Monday-Monday.
Saline nasal spray
Patient states that he tries to avoid antihistamines with his prior history of prostate issues.
Part of his exertional symptoms in the outpatient setting are due to imbalance and possibly peripheral neuropathy.
Continue morphine 5 mg p.o. every 6 hours as needed to limit air hunger, improve respiratory status
Due to insomnia, continue melatonin and limit interventions at night
Patient will likely benefit from continued low-dose steroid (prednisone 10 mg p.o.) outpatient until seen again by pulmonology
Discussed importance of pulmonary rehab outpatient with patient
DVT PPx: Lovenox 40 mg
GI prophylaxis
Nutrition
Physical therapy/early mobilization.
Follow-up with Dr. Fox in the next 2 weeks after discharge.
.
Subjective Data
-
Date of Service:
Date of Service: October 27, 2025
Chief Complaint: Pulmonary Follow Up (Acute exacerbation of COPD) and Dyspnea Follow Up
Subjective:
Still with some shortness of breath, increased oxygen needs, dyspnea on exertion, chest pain or abdominal pain
Review of Systems
General: Other ( per HPI)
Objective Data
Data Reviewed
Vital Signs / I&O:
Vital Signs
Temp Pulse Resp BP Pulse Ox
97.8 F 87 22 180/78 93
10/27/25 07:26 10/27/25 08:37 10/27/25 07:48 10/27/25 08:37 10/27/25 07:48
Intake and Output
10/26/25 10/27/25 10/28/25
06:59 06:59 06:59
Intake Total 780 / 780 840 / 840
Output Total 615 / 615
Balance 165 / 165 840 / 840
SaO2: 93
Nasal Cannula flow liters per minute: 4
Physical Exam
General: Respiratory Distress (n), Comfortable and Other (No acute distress)
HEENT: Normocephalic, Anicteric and Moist Mucous Membranes
Cardiovascular: Regular Rhythm
Respiratory: Clear (Diminished overall) and Non-Labored Respirations
GI: Soft and Non Distended
Neurology: Awake, Alert, AO x 3 and No Motor Deficits
Skin: Warm, Good Color, Cyanosis (n), Jaundice (n) and Rash (n)
Labs/Micro/Reports
Lab Data
10/25/25 08:10
10/25/25 08:10
--- NOTE | 2025-10-27 11:00 | W.PN.HOSP.TC ---
Today's Communication/Plan
-
Prednisone.
Wean oxygen.
Ambulatory pulse ox on exertion
Assessment / Plan
Assessment / Plan
Impression:
Patient is 80-year-old male with past medical history known for severe COPD (follows with Dr. Fox), GERD, chronic lower extremity edema, history of gastric cancer, history of prostate cancer (status post resection and radiation), initially
admitted to ICU on 10/22 with shortness of breath, cough, and respiratory distress. Patient had Two COPD exacerbations in the past few months treated outpatient with prednisone and azithromycin. In the ER patient found to be afebrile, hypertensive,
tachycardic, tachypneic, hypoxic. Received Solu-Medrol, DuoNebs, ceftriaxone, azithromycin, and BiPAP.
Initial blood work showed
Labs: No leukocytosis, proBNP 332, VBG normal pH/CO?/bicarb
Imaging: CXR�hyperinflation consistent with COPD, mild interstitial opacification
Influenza & COVID: Negative
Patient started on IV steroid, breathing treatment, seen pulmonology.
Required oxygen, pulmonology weaned steroid to oral prednisone and continue to wean oxygen.
Cardiovascular ox before discharge.
Assessment/plan:
Acute Hypoxic Respiratory Failure secondary to Acute COPD Exacerbation
Maintain O? saturation >88%; currently on 4 L NC
Wean O? as tolerated; home O? evaluation prior to discharge
Status post 125 mg Solu-Medrol in ED; continue steroids (switched to prednisone likely will need prolonged taper)
Continue azithromycin (500 mg daily)
Bronchodilators: scheduled and PRN
BiPAP nightly and PRN (patient refused overnight)
Sputum sample pending
Morphine PRN for air hunger
Pulmonary team following; recommendations appreciated
GERD
Continue anti-acid therapy
Chronic Lower Extremity Edema
Continue Lasix
History of Gastric Cancer
Monitor; no acute issues
History of Prostate Cancer (s/p resection and radiation)
Monitor; no acute issues
CODE STATUS: Full code
DVT prophylaxis: Lovenox
Diet: Regular diet
Disposition: Which steroid-dependent
PT evaluation; may require placement
Total time spent on today's encounter was 55 minutes which included time spent in counseling the patient/family regarding diagnosis and treatment plan as listed above, goals of care, and symptom management. Case was discussed with nursing staff,
specialists, and care coordinators/case management. All labs and imaging personally reviewed by me. Remainder the time spent in detailed review of previous records, lab data, imaging, and other medical provider documentation.
Anticipated Discharge: 24 - 48 hours
Subjective/Interval History
-
Date of Service: October 27, 2025
Patient seen and examined at bedside, patient was on 3 L yesterday, up to 4 L overnight.
Still with shortness of breath, conversational dyspnea, denies any chest pain , shortness of breath Improved, no abdominal pain, no nausea, no vomiting, no diarrhea or constipation.
Objective Data
-
Vital Signs:
Vital Signs
Temp Pulse Resp BP Pulse Ox
97.8 F 87 22 180/78 93
10/27/25 07:26 10/27/25 08:37 10/27/25 07:48 10/27/25 08:37 10/27/25 08:50
I&O
10/26/25 10/27/25 10/28/25
06:59 06:59 06:59
Intake Total 780 / 780 840 / 840
Output Total 615 / 615
Balance 165 / 165 840 / 840
Physical Exam
-
General: Well Developed, Well Nourished, No Apparent Distress and Comfortable
HEENT: Normocephalic, Atraumatic, Moist Mucous Membranes, No Ptosis, PERRLA and Nose Appears Normal
Respiratory: Wheezes, Rales, Rhonchi, Crackles, Accessory Resp Muscle Use and Decreased Breath Sounds
Cardiac: Regular Rhythm and S1/S2
Breast: Deferred by me
GI: Soft, Nontender, Nondistended and Normal Bowel Sounds
Genito-urinary: No Costovertebral Tender
Musculoskeletal: No Clubbing, No Cyanosis and No Edema
Skin: Warm
Neuro: Awake, Alert, Oriented, AO x 3 and No Motor Deficits
Psych: Calm
Data Reviewed
-
Diagnostic Radiology: Image personally visualized and interpreted and Report Reviewed by me
CT Scan: Image personally visualized and interpreted and Report Reviewed by me
Ultrasound: Image personally visualized and interpreted and Report Reviewed by me
MRI: Image personally visualized and interpreted and Report Reviewed by me
Medical Tests (Nuc Med, Echo etc): Image personally visualized and interpreted and Report Reviewed by me
Labs: Labs Reviewed by me
Old Records: Reviewed
[2025-10-27] MEDS: SENOKOT-S 1 TABLET PO (14:18)
--- NOTE | 2025-10-27 15:06 | CM ---
Prednisone 50mg daily with plan to taper. On O2 @ 4L, attempts to wean but patient becomes SOB when speaking, at rest pO2 95%. Had episode of difficulty breathing in early AM. Discharge POC: Await therapy eval and rec. Watch for O2 needs at
discharge. No O2 at baseline.
[2025-10-27] MEDS: LOVENOX 40 MG SC (18:30)
[2025-10-27] MEDS: DUONEB 3 ML INH (19:39)
[2025-10-27] MEDS: PEPCID 20 MG PO (21:20)
[2025-10-27] MEDS: NON-FORMULARY ITEM 25 MG PO (21:20)
[2025-10-27] MEDS: MELATONIN 10 MG PO (21:20)
[2025-10-27] MEDS: TYLENOL 650 MG PO (21:28)
[2025-10-27] MEDS: TESSALON PERLES 200 MG PO (21:37)
[2025-10-27] MEDS: TUMS CHEWABLE TABLET 200 MG PO (21:37)
[2025-10-27] MEDS: MORPHINE ORAL SOLUTION 5 MG PO (21:40)
[2025-10-28 03:37] VITALS: BP 159/81
[2025-10-28] MEDS: MORPHINE ORAL SOLUTION 5 MG PO (03:41)
[2025-10-28 07:50] VITALS: BP 128/66
[2025-10-28 08:02] LABS: Hematocrit 38.5 % (39.0-52.0); Hemoglobin 12.7 g/dL (13.0-18.0); Mean Corp Hgb Conc. 33.0 g/dL (33.0-37.0); Mean Corpuscular Volume 89.5 fL (80.0-94.0); Platelet Count 168 10^3/uL (130-400); Red Cell Dist. Width 13.1 % (11.5-14.5)
[2025-10-28] MEDS: SPIRIVA RESPIMAT 2.5 MCG 2 PUFF INH (08:05)
[2025-10-28] MEDS: SYMBICORT 160/4.5 MCG INHALER 2 PUFF INH (08:05)
[2025-10-28] MEDS: DUONEB 3 ML INH (08:06)
[2025-10-28] MEDS: SODIUM CHLORIDE 3% FOR INHALATION 1 VIAL INH ×2 (08:06→11:10)
[2025-10-28 08:09] LABS: Blood Urea Nitrogen 39 mg/dl (9-20); Calcium 8.7 mg/dl (8.4-10.2); Carbon Dioxide 29 mmol/L (22-30); Chloride 101 mmol/L (98-107); Estimated Creatinine Clearance 60 ml/min; Glucose 102 mg/dl (70-99); Potassium 3.9 mmol/L (3.5-5.1); Sodium 134 mmol/L (135-145); eGFR > 60.00
[2025-10-28] MEDS: MUCINEX 1200 MG PO (09:07)
[2025-10-28] MEDS: DELTASONE 50 MG PO (09:07)
[2025-10-28] MEDS: LASIX 20 MG PO (09:08)
[2025-10-28] MEDS: THERAGRAN 1 TABLET PO (09:09)
[2025-10-28] MEDS: VITAMIN C 500 MG PO (09:09)
[2025-10-28] MEDS: B COMPLEX w/VITAMIN C 1 CAPLET PO (09:09)
[2025-10-28] MEDS: NON-FORMULARY ITEM 1 MG PO (09:10)
[2025-10-28] MEDS: METAMUCIL, KONSYL PO (09:14)
--- NOTE | 2025-10-28 11:03 | W.PN.PUL.V3 ---
Today's Communication / Plan
-
.
Increase activity.
Wean oxygen.
Follow-up to assessment.
Outpatient pulmonary follow-up
Assessment
-
80-year-old male with PMH of severe COPD (follows with Dr. Fox) and GERD undergoing management in the ICU after presenting 10/22 with SOB, cough, and respiratory distress. Patient has had 2 COPD exacerbations over the last few months, which
required outpatient treatment with prednisone and azithromycin. On presentation, patient was afebrile, hypertensive, tachycardic, tachypneic, and hypoxic. In the ED, patient was administered Solu-Medrol, DuoNebs, antibiotics (ceftriaxone,
azithromycin), and BiPAP. Labs reassuring, with no leukocytosis, proBNP 332, and VBG showing normal pH, CO2, and bicarb. CXR showed hyperinflation c/w COPD and mild interstitial opacification. Patient is undergoing management for acute
exacerbation of COPD. Pulmonary following for acute exacerbation of COPD 10/24/2025
AECOPD
Acute hypoxic respiratory failure
Conditions present UTILIZATION REVIEW COORDINATOR:
#GERD
#History of gastric cancer s/p partial gastrectomy (2007)
#History of prostate cancer s/p resection (2003)
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
Not hypercapnic on ABG this admission
No evidence for peripheral eosinophilia
Last CT chest 2023 without evidence of bronchiectasis.
Plan:
Severe acute exacerbation of COPD-likely tracheobronchitis.
Previous to this, patient is not a frequent exacerbator.
On last 6-minute walk testing without oxygen requirements.
PFTs 08/18/2025 showed severe obstruction
Respiratory status slowly improving but still on supplemental options-reports no oxygen at home.
Continue supplemental oxygen-currently on 4 L
Access discharge Supplemental oxygen needs
Continue nebulizers.
Symbicort and Spiriva Continue
Mucinex.
Chest x-ray was without significant abnormalities.
Prednisone taper.
Continue azithromycin 500 mg Monday, Monday-Monday.
Saline nasal spray
Patient states that he tries to avoid antihistamines with his prior history of prostate issues.
Part of his exertional symptoms in the outpatient setting are due to imbalance and possibly peripheral neuropathy.
Continue morphine 5 mg p.o. every 6 hours as needed to limit air hunger, improve respiratory status
Due to insomnia, continue melatonin and limit interventions at night
Patient will likely benefit from continued low-dose steroid (prednisone 10 mg p.o.) outpatient until seen again by pulmonology
Discussed importance of pulmonary rehab outpatient with patient
DVT PPx: Lovenox 40 mg
GI prophylaxis
Nutrition
Physical therapy/early mobilization.
Follow-up with Dr. Fox in the next 2 weeks after discharge.
.
Subjective Data
-
Date of Service:
Date of Service: October 28, 2025
Chief Complaint: Pulmonary Follow Up (Acute exacerbation of COPD) and Dyspnea Follow Up
Subjective:
Patient feels better, no complaints of increasing shortness of breath, on 4 L, chest pain, productive cough, or abdominal pain
Review of Systems
General: Other (per HPI)
Objective Data
Data Reviewed
Vital Signs / I&O:
Vital Signs
Temp Pulse Resp BP Pulse Ox
97.7 F 62 18 128/66 94
10/28/25 07:50 10/28/25 09:08 10/28/25 08:13 10/28/25 09:08 10/28/25 08:13
Intake and Output
10/27/25 10/28/25 10/29/25
06:59 06:59 06:59
Intake Total 840 / 840 900 / 900
Output Total 525 / 525
Balance 840 / 840 375 / 375
SaO2: 94
Nasal Cannula flow liters per minute: 4
Physical Exam
General: Respiratory Distress (n), Comfortable and Other (No acute distress)
HEENT: Normocephalic, Anicteric and Moist Mucous Membranes
Cardiovascular: Regular Rhythm
Respiratory: Clear (Diminished overall) and Non-Labored Respirations
GI: Soft and Non Distended
Neurology: Awake, Alert, AO x 3 and No Motor Deficits
Skin: Warm, Good Color, Cyanosis (n), Jaundice (n) and Rash (n)
Labs/Micro/Reports
Lab Data
10/28/25 06:39
10/28/25 06:39
--- NOTE | 2025-10-28 11:06 | W.PN.HOSP.TC ---
Today's Communication/Plan
-
Ambulatory pulse ox before discharge.
Discharge home today
Assessment / Plan
Assessment / Plan
Impression:
Patient is 80-year-old male with past medical history known for severe COPD (follows with Dr. Fox), GERD, chronic lower extremity edema, history of gastric cancer, history of prostate cancer (status post resection and radiation), initially
admitted to ICU on 10/22 with shortness of breath, cough, and respiratory distress. Patient had Two COPD exacerbations in the past few months treated outpatient with prednisone and azithromycin. In the ER patient found to be afebrile, hypertensive,
tachycardic, tachypneic, hypoxic. Received Solu-Medrol, DuoNebs, ceftriaxone, azithromycin, and BiPAP.
Initial blood work showed
Labs: No leukocytosis, proBNP 332, VBG normal pH/CO?/bicarb
Imaging: CXR�hyperinflation consistent with COPD, mild interstitial opacification
Influenza & COVID: Negative
Patient started on IV steroid, breathing treatment, seen pulmonology.
Required oxygen, pulmonology weaned steroid to oral prednisone and continue to wean oxygen.
Ambulatory pulse ox before discharge.
Repeat x-ray shows no acute finding
Assessment/plan:
Acute Hypoxic Respiratory Failure secondary to Acute COPD Exacerbation
Maintain O? saturation >88%; currently on 4 L NC
Wean O? as tolerated; home O? evaluation prior to discharge
Status post 125 mg Solu-Medrol in ED; continue steroids (switched to prednisone likely will need prolonged taper)
Continue azithromycin (500 mg daily)
Bronchodilators: scheduled and PRN
BiPAP nightly and PRN (patient refused overnight)
Sputum sample pending
Morphine PRN for air hunger
Pulmonary team following; recommendations appreciated
10/28
Ambulatory pulse ox before discharge.
Repeat x-ray shows no acute finding
Discharge home today
GERD
Continue anti-acid therapy
Chronic Lower Extremity Edema
Continue Lasix
History of Gastric Cancer
Monitor; no acute issues
History of Prostate Cancer (s/p resection and radiation)
Monitor; no acute issues
CODE STATUS: Full code
DVT prophylaxis: Lovenox
Diet: Regular diet
Disposition:
Ambulatory pulse ox before discharge.
Repeat x-ray shows no acute finding
Discharge home today
Total time spent on today's encounter was 55 minutes which included time spent in counseling the patient/family regarding diagnosis and treatment plan as listed above, goals of care, and symptom management. Case was discussed with nursing staff,
specialists, and care coordinators/case management. All labs and imaging personally reviewed by me. Remainder the time spent in detailed review of previous records, lab data, imaging, and other medical provider documentation.
Anticipated Discharge: Today
Subjective/Interval History
-
Date of Service: October 28, 2025
Patient seen and examined at bedside, denies any chest pain , shortness of breath Improved, no abdominal pain, no nausea, no vomiting, no diarrhea or constipation.
Ambulatory pulse ox on exertion.
Objective Data
-
Labs:
Laboratory Results
10/28/25
06:39
WBC 12.2 H
Hgb 12.7 L
Hct 38.5 L
Plt Count 168
Sodium 134 L
Potassium 3.9
Chloride 101
Carbon Dioxide 29
BUN 39 H
Creatinine 1.1
Glucose 102 H
Calcium 8.7
Vital Signs:
Vital Signs
Temp Pulse Resp BP Pulse Ox
97.7 F 62 18 128/66 94
10/28/25 07:50 10/28/25 09:08 10/28/25 08:13 10/28/25 09:08 10/28/25 11:03
I&O
10/27/25 10/28/25 10/29/25
06:59 06:59 06:59
Intake Total 840 / 840 900 / 900
Output Total 525 / 525
Balance 840 / 840 375 / 375
Physical Exam
-
General: Well Developed, Well Nourished, No Apparent Distress and Comfortable
HEENT: Normocephalic, Atraumatic, Moist Mucous Membranes, No Ptosis, PERRLA and Nose Appears Normal
Respiratory: Wheezes, Rales, Rhonchi, Crackles, Accessory Resp Muscle Use and Decreased Breath Sounds
Cardiac: Regular Rhythm and S1/S2
Breast: Deferred by me
GI: Soft, Nontender, Nondistended and Normal Bowel Sounds
Genito-urinary: No Costovertebral Tender
Musculoskeletal: No Clubbing, No Cyanosis and No Edema
Skin: Warm
Neuro: Awake, Alert, Oriented, AO x 3 and No Motor Deficits
Psych: Calm
[2025-10-28 11:55] VITALS: BP 108/64
--- NOTE | 2025-10-28 14:13 | W.DCSUMMARY ---
Discharge Summary
Discharge Data
Date of Admission: 10/22/25
Date of Discharge: 10/28/25
Total time spent discharging patient (in min): 40
-
Pending Results: No
Hospital Course
Hospital course
Patient is 80-year-old male with past medical history known for severe COPD (follows with Dr. Fxo), GERD, chronic lower extremity edema, history of gastric cancer, history of prostate cancer (status post resection and radiation), initially
admitted to ICU on 10/22 with shortness of breath, cough, and respiratory distress. Patient had Two COPD exacerbations in the past few months treated outpatient with prednisone and azithromycin. In the ER patient found to be afebrile, hypertensive,
tachycardic, tachypneic, hypoxic. Received Solu-Medrol, DuoNebs, ceftriaxone, azithromycin, and BiPAP.
Initial blood work showed
Labs: No leukocytosis, proBNP 332, VBG normal pH/CO?/bicarb
Imaging: CXR�hyperinflation consistent with COPD, mild interstitial opacification
Influenza & COVID: NegativePatient started on IV steroid, breathing treatment, seen pulmonology.
Required oxygen, pulmonology weaned steroid to oral prednisone and continue to wean oxygen.
Ambulatory pulse ox before discharge done, patient was not qualified for home oxygen.
Repeat x-ray shows no acute finding
Will be discharged on long prednisone tapering.
During hospitalization patient was treated from the following
Acute Hypoxic Respiratory Failure secondary to Acute COPD Exacerbation
Maintain O? saturation >88%; currently on 4 L NC
Wean O? as tolerated; home O? evaluation prior to discharge
Status post 125 mg Solu-Medrol in ED; continue steroids (switched to prednisone likely will need prolonged taper)
Continue azithromycin (500 mg daily)
Bronchodilators: scheduled and PRN
BiPAP nightly and PRN (patient refused overnight)
Sputum sample pending
Morphine PRN for air hunger
Pulmonary team following; recommendations [id number]
Ambulatory pulse ox done and patient was not cooperative from oxygen.
Repeat x-ray shows no acute finding
Discharge home today
Discharge on long Prednisone taper
GERD
Continue anti-acid therapy
Chronic Lower Extremity Edema
Continue Lasix
History of Gastric Cancer
Monitor; no acute issues
History of Prostate Cancer (s/p resection and radiation)
Monitor; no acute issues
CODE STATUS: Full code
DVT prophylaxis: Lovenox
Diet: Regular diet
Disposition:
Ambulatory pulse ox before discharge.
Repeat x-ray shows no acute finding
Discharge home today
Total time spent on today's encounter was 40 minutes which included time spent in counseling the patient/family regarding diagnosis and treatment plan as listed above, goals of care, and symptom management. Case was discussed with nursing staff,
specialists, and care coordinators/case management. All labs and imaging personally reviewed by me. Remainder the time spent in detailed review of previous records, lab data, imaging, and other medical provider documentation.
Anticipated Discharge: Today
Discharge Plan
-
Patient Disposition: Home with Home Care
Discharge Diagnosis/Procedures: Acute Hypoxic Respiratory Failure
Acute COPD Exacerbation.
Diet: As tolerated and Regular
Activity: As tolerated
Referrals:
Case Daugherty MD [Active, Pulmonary Medicine] - in two to three weeks
Referral Note: May see [facility]
Charlie Madrid DO [Family Provider, Internal Medicine]
Prescriptions:
New
prednisone 10 mg tablet
10 mg PO DIRECTED Qty: 45 0RF
Rx Instructions:
take 50 mg X 3 days then 40 mg X 3 day then 30 mg X 3 day then 20 mg X 3 day then 10 mg X 3 day.
guaifenesin 600 mg Tablet Extended Release 12hr
1,200 mg PO Q12 Qty: 20 0RF
azithromycin 250 mg Tablet
500 mg PO MOWEFR Qty: 10 0RF
(DME) Classic Oxygen Concentrator device
See Rx Instructions .Route .MEDSUPPLY Qty: 1 0RF
Rx Instructions:
Diagnosis: COPD
Continued
acetaminophen [Tylenol] 325 mg Tablet
650 mg PO Q6HPRN PRN (Reason: MILD PAIN)
albuterol sulfate 2.5 mg /3 mL (0.083 %) Solution For Nebulization
2.5 mg INHALATION R Q4HPRN PRN (Reason: SOB)
therapeutic multivitamin Tablet
1 tab PO DAILY
famotidine [Pepcid] 20 mg Tablet
20 mg PO QPM
ascorbic acid (vitamin C) [Vitamin C] 500 mg Tablet
500 mg PO DAILY
Citrucel 500 mg Tablet
1,200 mg PO DAILY
calcium carbonate [Tums] 200 mg calcium (500 mg) Tablet,Chewable
200 mg PO BIDPRN PRN (Reason: GERD)
vitamin B complex Tablet
1 tab PO DAILY
furosemide [Lasix] 20 mg Tablet
20 mg PO DAILY
mirabegron [Myrbetriq] 25 mg Tablet Extended Release 24 Hr
25 mg PO QPM
Trelegy Ellipta 100-62.5-25 mcg Blister With Device
1 inh INHALATION R DAILY
Voquezna 10 mg Tablet
10 mg PO DAILY
Discharge Orders:
Discharge Patient (As Directed); Ordered 10/28/25
Ordered By: Homa Sherman
Discharge Date and Time
Print Language: ARMENIAN
--- NOTE | 2025-10-28 14:30 | CM ---
Patient has been medically cleared for discharge to home with no additional skilled services. Patient has arranged for transport home.
== END 2025-10-28 15:36 | disposition home or self-care (01) | DRG 190 ==
LOC: 2 NORTH 13:35
PROVIDERS: Student in an Organized Health Care Education/Training Program; ADMITTING PHYSICIAN Hospitalist; ATTENDING PHYSICIAN General Practice; CONSULT PHYSICIAN Internal Medicine; EMERGENCY PHYSICIAN Student in an Organized Health Care Education/Training Program; FAMILY PHYSICIAN Internal Medicine
PROC: 5A0935A Assistance with Respiratory Ventilation, Less than 24 Consecutive Hours, High Flow/Velocity Cannula (ICD-10-PCS; 2025-10-22)
DX: J44.1 Chronic obstructive pulmonary disease with (acute) exacerbation (principal); J96.01 Acute respiratory failure with hypoxia; K21.9 Gastro-esophageal reflux disease without esophagitis; I10 Essential (primary) hypertension; E78.5 Hyperlipidemia, unspecified; Z87.891 Personal history of nicotine dependence; Z11.52 Encounter for screening for COVID-19; Z85.46 Personal history of malignant neoplasm of prostate; Z85.028 Personal history of other malignant neoplasm of stomach; Z79.899 Other long term (current) drug therapy
CPT/HCPCS: 71045; 80048; 80053; 82805; 83735; 83880; 85025; 85027; 85610; 85730; 87205; 87502; 87811; 92526; 92610; 92612; 93005; 94640; 94660; 96365; 96375; 97116; 97163; 99285